=== PATIENT | male | born 1950 | race Caucasian/White ===

== ENCOUNTER 2020-07-24 08:01 | Inpatient (IN) | payer OTHER ==
[~2020-07-24] VITALS: Ht 180.3 cm; Wt 76.0 kg
[2020-07-24 09:13] LABS: BASOPHILS ABSOLUTE AUTO 0.03 K/mm3 (0.00-0.23); BASOPHILS PERCENT AUTO 0 % (0-2); EOSINOPHILS ABSOLUTE AUTO 0.01 K/mm3 (0.00-0.68); EOSINOPHILS PERCENT AUTO 0 % (0-6); Hematocrit 45.1 % (37.0-53.0); Hemoglobin 14.7 g/dL (13.5-17.5); IMMATURE GRAN ABSOLUTE AUTO 0.07 K/mm3 (0.00-0.10); IMMATURE GRAN PERCENT AUTO 1 % (0-1); LYMPHOCYTES ABSOLUTE AUTO 0.62 K/mm3 (0.84-5.20); LYMPHOCYTES PERCENT AUTO 5 % (21-46); MONOCYTES ABSOLUTE AUTO 0.89 K/mm3 (0.16-1.47); MONOCYTES PERCENT AUTO 7 % (4-13); Mean Corpuscular HGB 31.5 pg (26.0-34.0); Mean Corpuscular HGB Conc 32.6 g/dL (31.5-36.5); Mean Corpuscular Volume 97 fL (80-100); Mean Platelet Volume 9.9 fL (9.1-12.4); NEUTROPHILS ABSOLUTE AUTO 10.41 K/mm3 (1.96-9.15); NEUTROPHILS PERCENT AUTO 87 % (41-73); Platelet Count 239 K/mm3 (150-400); RDW Coefficient Variation 12.1 % (11.7-14.2); RDW Standard Deviation 43.3 fL (35.1-46.3); Red Blood Cell Count 4.67 M/mm3 (4.30-5.90); White Blood Cell Count 12.03 K/mm3 (4.00-11.30)
[2020-07-24 09:34] LABS: Alanine Aminotransfer (ALT/SGP 15 U/L (12-78); Albumin/Globulin Ratio 0.8 (0.8-1.8); Alk Phos 57 U/L (50-136); Anion Gap 5 mmol/L (6-16); Aspartate Aminotrans (AST/SGOT 12 U/L (12-37); Bilirubin, Total 2.5 mg/dL (0.1-1.0); Blood Urea Nitrogen 13 mg/dL (8-24); Bun/Creatinine Ratio 13.6 (12.0-20.0); CO2, Blood 27 mmol/L (21-32); Calcium, Blood 8.7 mg/dL (8.5-10.1); Chloride, Blood 105 mmol/L (98-108); Creatinine, Blood 0.96 mg/dL (0.60-1.20); Globulin, Blood 3.9 g/dL (2.2-4.0); Glomerular Filtration Rate >60 (60-); Glucose, Blood 99 mg/dL (70-99); Potassium, Blood 4.1 mmol/L (3.5-5.5); Sodium, Blood 137 mmol/L (136-145); Total Protein, Blood 6.9 g/dL (6.4-8.2); Troponin I <0.015 ng/mL (0.000-0.040)
[2020-07-24] MEDS ORDERED: Hytrin2 MG PO (12:47)
[2020-07-24] MEDS ORDERED: OMEP20ER PO (13:32)
[2020-07-25 05:06] LABS: Hematocrit 40.2 % (37.0-53.0); Hemoglobin 13.1 g/dL (13.5-17.5); Mean Corpuscular HGB 31.1 pg (26.0-34.0); Mean Corpuscular HGB Conc 32.6 g/dL (31.5-36.5); Mean Corpuscular Volume 96 fL (80-100); Mean Platelet Volume 10.1 fL (9.1-12.4); Platelet Count 223 K/mm3 (150-400); RDW Coefficient Variation 12.1 % (11.7-14.2); Red Blood Cell Count 4.21 M/mm3 (4.30-5.90)
[2020-07-25 05:25] LABS: Anion Gap 6 mmol/L (6-16); Blood Urea Nitrogen 18 mg/dL (8-24); Bun/Creatinine Ratio 20.3 (12.0-20.0); CO2, Blood 26 mmol/L (21-32); Calcium, Blood 8.8 mg/dL (8.5-10.1); Chloride, Blood 106 mmol/L (98-108); Creatinine, Blood 0.89 mg/dL (0.60-1.20); Glomerular Filtration Rate >60 (60-); Glucose, Blood 168 mg/dL (70-99); Potassium, Blood 4.1 mmol/L (3.5-5.5); Sodium, Blood 138 mmol/L (136-145)
--- NOTE | 2020-07-25 06:06 | NUR ---
SHIFT SUMMARY PT WAS A NEW ADMIT DURING THE NIGHT, ARRIVING ON THE UNIT AT 2057. HE WAS ADMITTED FOR ACUTE RESPIRATORY FAILURE. PT IS A&O X 4, ABLE TO AMBULATE INDEPENDENTLY. PT IS ON 2L O2 VIA NC, SATTING > 90%. PT DID RUN A MILD FEVER 100.4 TEMPORALLY THAT CAME DOWN TO 98.6 AFTER RECEIVING TYLENOL. ALL OTHER VITALS STABLE. PT WAS MEDICATED ONCE WITH AM FOR A KWAN. PT DENIED ANY ACUTE SOB SINCE ARRIVAL TO THE FLOOR, AND STATES HE FEELS "MUCH BETTER THAN I DID LAST NIGHT". NO ACUTE CHANGES IN PT CONDITION NOTED DURING THE NIGHT. WILL CONTINUE TO MONITOR AND TREAT PER EMAR UNTIL HAND OFF TO DAY SHIFT RN.
[2020-07-25 12:50] LABS: International Normalized Ratio 0.99; Prothrombin Time Results 10.6 Sec (9.7-11.5)
--- NOTE | 2020-07-25 17:42 | NUR ---
PATIENT A/OX4, UP INDEPENDENTLY IN ROOM. VSS, ON 2LO2 TO MAINTAIN SATS. L SIDED CP AND HEADACHE WELL CONTROLLED WITH NORCO AND TORADOL. LUNGS COARSE WITH CRACKLES IN THE BASES. THORACENTESIS ORDERED, BUT WILL BE DONE TOMORROW DUE TO LOVENOX INJECTION GIVEN LAST NIGHT. LOVENOX NOW D/C'D. SR ON TELE. 20G IV TO R AC WNL AND SL. TOLERATING REGULAR DIET. COOPERATIVE WITH CARE, ABLE TO MAKE NEEDS KNOWN.
--- NOTE | 2020-07-26 06:32 | NUR ---
SHIFT SUMMARY PT IS A 70 Y/O MALE, ADMITTED FOR ACUTE RESPIRATORY FAILURE. HE IS A&O X 4, INDEPENDENT TO THE BATHROOM. PT IS ON 2L OF O2 VIA NC TO KEEP SATS > 90%. TELE SHOWED NSR/ST IN THE 90-100S. PT RAN A LOW GRADE TEMP OF 101.7, WHICH CAME DOWN TO 99.3 AFTER RECEIVING TYLENOL. ALL OTHER VITALS STABLE. PT C/O ACUTE ABDOMINAL PAIN, WHICH HE BELIEVES IS R/T CONSTIPATION. DIFFUSE ABD TENDERNESS AND MILD DISTENTION NOTED THIS AM. PT WAS GIVEN PRUNE JUICE AND REPORTED HAVING A SMALL BM. HE WAS MEDICATED TWICE FOR PAIN WITH HYDROCODONE AND TORADOL. NO C/O NAUSEA OR SOB. PT AWAITING A THORACENTESIS TODAY. NO OTHER ACUTE CHANGES IN PT CONDITION NOTED. WILL CONTINUE TO MONITOR AND TREAT PER EMAR UNTIL HAND OFF TO DAY SHIFT RN.
[2020-07-26 10:14] LABS: Automated BF RBC Count 0.002 M/mm3 (0-0); Body Fluid WBC Count 2410 /mm3 (0-999)
[2020-07-26 10:30] LABS: pH, Body Fluid 7.9
[2020-07-26 10:41] LABS: Albumin, Body Fluid 2.3 g/dL; Glucose, Body Fluid 102 mg/dL; Lactate Dehydrogenase, Body Fl 106 U/L; Protein, Body Fluid 3.9 g/dL
[2020-07-26 11:14] LABS: Appearance, Body Fluid Cloudy (Clear); Color, Body Fluid Yellow (None-Yellow); Total Cell Count, Body Fluid 100
--- NOTE | 2020-07-26 12:37 | NUR ---
PT TO SDS FROM FLOOR. History, Chart, Medications and Allergies reviewed before start of procedure. Patient confirms NPO status and agrees with scheduled surgery. PTS IV FLUSHED, PATENT. PTS ABD NOT PREPPED, ABD TENDER.
--- NOTE | 2020-07-26 13:57 | NUR ---
[facility] AT 1353.
--- NOTE | 2020-07-26 16:49 | NUR ---
TRANSFER NOTE THIS RN GAVE REPORT TO WENDY DIETRICH IN ICU. PT HAS BEEN IN HIS GI PROCEDURE SINCE 1200 TODAY. BELONGINGS BROUGHT FROM ROOM TO ICU BY HIGH DENSITY PRESS OPERATOR. THIS RN TUBED PT MEDICATIONS TO ICU AT APPROXIMATELY 1650.
--- NOTE | 2020-07-26 18:25 | NUR ---
SHIFT SUMMARY PT TRANSFERRED TO ROOM ICU 8 FROM PACU A PCU PTAT 1712 THIS EVENING. UPON ARRIVAL PT WAS ON 8L OXYMIZER, NEW COLOSTOMY TO LLQ IN PLACE, PINK AND NO STOOL NOTED. [address] #1 ON RIGHT ABD AND #2 ON LEFT ABD, BOTH DRAINING SEROSANGUINEOUS FLUID. MID ABDOMINAL INCISION DRESSING C/D/I. BLANCO IN PLACE DRAINING TO GRAVITY WITH CLEAR YELLOW URINE. PT REPORTED THAT PAIN WAS GREATLY IMPROVED COMPARED TO PRE-OP AROUND 09/01. VITALS HAVE REMAINED STABLE POST RECOVERY. PT CURRENTLY NOW ON 4L OF O2 VIA OXYMIZER AND SPO2 REMAINS >92%. MONITOR SHOWS PT TO BE IN SINUS RHYTHM. PT C/O INCREASED PAIN WITH MOVEMENT, BUT FALLS ASLEEP EASILY WHEN LAYING STILL. LIAN OUTPUT MINIMAL FOR CURRENT RECOVERY PERIOD.
--- NOTE | 2020-07-26 19:00 | NUR ---
ASSUMED CARE NOTE: ASSUMED CARE OF PT AT 1900. PT IS ALERT AND ORIENTEDX4, ABLE TO COMMUNICATE NEEDS. PT IS ON 4L OF 02 VIA OXYIMZER, SPO2 ABOVE 90% PT IS SINUS TO SINUS TACH HR BETWEEN 90-110. PT DENIES ANY CP/SOB. PT IS VERY COARSE T/O. WEAK COUGH, INCENTIVE SPIROMETER GIVEN TO PATIENT AND DEMONSTRATED USE.YANKAUER GIVEN TO PATIENT AT BEDSIDE. MID-ABDOMEN INCISION DRESSING C/D/I. STOMA IS RED AND MOIST, SEROSANGUANIOUS FLUID NOTED. 1ST LINA DRAIN TO RIGHT SIDE ABDOMEN, DRAINING SEROUSANGUANIOUS FLUID WELL LIAN #2 TO LEFT ABDOMEN. PT STS 3/10 PAIN TO ABDOMEN IS DECLINING NEED FOR PAIN MEDS AT THIS TIME. BLANCO PATENT, DRAINING TO GRAVITY, BED AT LOWEST LEVEL. CALL LIGHT WITHIN REACH.
[2020-07-27 03:49] LABS: Hematocrit 36.2 % (37.0-53.0); Hemoglobin 11.6 g/dL (13.5-17.5); Mean Corpuscular HGB 30.9 pg (26.0-34.0); Mean Corpuscular Volume 96 fL (80-100); Mean Platelet Volume 9.2 fL (9.1-12.4); Platelet Count 243 K/mm3 (150-400); RDW Coefficient Variation 12.7 % (11.7-14.2); RDW Standard Deviation 45.6 fL (35.1-46.3); Red Blood Cell Count 3.76 M/mm3 (4.30-5.90)
[2020-07-27 04:07] LABS: Anion Gap 6 mmol/L (6-16); Blood Urea Nitrogen 24 mg/dL (8-24); Bun/Creatinine Ratio 21.6 (12.0-20.0); CO2, Blood 27 mmol/L (21-32); Calcium, Blood 7.9 mg/dL (8.5-10.1); Chloride, Blood 107 mmol/L (98-108); Creatinine, Blood 1.11 mg/dL (0.60-1.20); Glomerular Filtration Rate >60 (60-); Glucose, Blood 86 mg/dL (70-99); Magnesium, Blood 1.8 mg/dL (1.6-2.4); Potassium, Blood 4.1 mmol/L (3.5-5.5); Sodium, Blood 140 mmol/L (136-145)
--- NOTE | 2020-07-27 05:52 | NUR ---
SHIFT SUMMARY: NO SIGNIFICANT CHANGES. PT REMAINS ALERT AND ORIENTED. PT C/O PAIN THIS SHIFT, PAIN MEDS GIVEN PER EMAR. WHICH ALLIVIATED PAIN. PT CONTINUES TO BE ON 4L OF 02 VIA OXYMIZER WITH SPO2 ABOVE 90% PT IS STILL COARSE T/O. HOWEVER, COUGH IS GETTING STRONGER. PT HUGS PILLOW WHEN COUGHING WHICH AIDS IN PREVENTING PAIN ASSOCIATED WITH COUGHING. PT HAS BEEN IN SINUS TACH WITH HR IN THE 100-110. BP STABLE, DENIES ANY CP. MIDLINE SURGICAL INCISION C/D/I. COLOSTOMY TO LLQ DRAINING SEROSANGUANEOUS FLUID. STOMA MOIST AND RED, A LITTLE SWELLING NOTED, STS IT IS EXPECTED. LIAN TO RIGHT ABDOMEN DRAINING SS FLUID, LEFT LIAN DRAIN, DRAINING SS FLUID, MORE THAN THE RIGHT. BLANCO PATNET DRAINING DANIEL COLORED URINE. WILL CONTINUE TO MONITOR PT UNTIL REPORT IS GIVEN TO ONCOMING SHIFT.
--- NOTE | 2020-07-27 07:26 | NUR ---
ASSUMED CARE: PT LAYING IN BED BUT AWAKE AND TALKING TO STAFF. OXYMIZER IN PLACE. COLOSTOMY TO LEFT ABDOMEN WITH BEEFY RED STOMA. MINIMAL BROWN OUTPUT AT THIS TIME. LIAN DRAINS TO RIGHT AND LEFT ABDOMEN. RIGHT LIAN WITH REDDISH PINK DRAINAGE. LEFT LIAN WITH PINK SEROSAINGUINOUS DRAINAGE. DENIES NEEDS OR CONCERNS AT THIS TIME.
[2020-07-27 12:12] LABS: Hematocrit 38.3 % (37.0-53.0); Hemoglobin 12.2 g/dL (13.5-17.5); Mean Corpuscular HGB 30.9 pg (26.0-34.0); Mean Corpuscular HGB Conc 31.9 g/dL (31.5-36.5); Mean Corpuscular Volume 97 fL (80-100); Mean Platelet Volume 9.6 fL (9.1-12.4); Platelet Count 277 K/mm3 (150-400); RDW Coefficient Variation 12.8 % (11.7-14.2); RDW Standard Deviation 45.8 fL (35.1-46.3); Red Blood Cell Count 3.95 M/mm3 (4.30-5.90); White Blood Cell Count 12.34 K/mm3 (4.00-11.30)
--- NOTE | 2020-07-27 15:42 | NUR ---
IN HOUSE TRANSFER- ASSUMED CARE FROM RAIMANN MACHINE OPERATORLyudmila PT ARRIVED FROM ICU AT APPROXIMATELY 1510. PT WAS ABLE TO SBA TRANSFER FROM WHEELCHAIR TO BED. LUNGS ARE COARSE THROUGHOUT. VS STABLE, PT ON 3L NC. ABD DRESSINGS ARE CLEAN DRY INTACT, [address] DRAINING SERISANGOUINOUS FLUIDS. BLANCO CATH IN PLACE DRAINING YELLOW URINE, NEW STAT LOCK SECUREMENT DEVICE PLACED ON THE LEG. IV'S FLUSHED AND WORKING WELL. PT RESTING IN BED AT THIS TIME
--- NOTE | 2020-07-27 15:46 | NUR ---
REPORT GIVEN TO JAYDA NGUYEN. PT TRANSFERRED VIA WHEEL CHAIR TO PCU ROOM. AT BEDSIDE AND AWARE OF ROOM CHANGE. NO FURTHER NEEDS OR CONCERNS.
--- NOTE | 2020-07-27 17:42 | NUR ---
SHIFT SUMMARY PT ARRIVED FROM ICU THIS AFTERNOON. PT HAS 2 LIAN DRAINS, SEVERAL ABD DRESSINGS THAT ARE C/D/I, A NEW COLOSTOMY AND A BLANCO IN PLACE. THE COLOSTOMY HAS A SCANT AMOUNT OF RED BLOODY DRAINAGE BUT NO GAS OR STOOL OUTPUT OF NOW. PT'S PAIN HAS BEEN MANAGED WITH OXYCODONE, REPOSITIONING AND PRESSURE WITH A PILLOW ON THE ABD. PT SOUNDS VERY WET AND COARSE IN THE LUNGS AND AUDIBLE. PT HAS BEEN ENCOURAGED TO COUGH FREQUENTLY AND USE THE INCENTIVE SPIROMETER. PT IS TOLERATING CLEAR LIQUIDS AT THIS TIME WELL. VS STABLE PT RESTING IN BED AT THIS TIME
--- NOTE | 2020-07-28 02:27 | NUR ---
PT HAS REPORTED ABDOMINAL PAIN WHICH INCREASES WITH COUGHING, OTHERWISE HE HAS BEEN REPORTING HIS ABDOMINAL PAIN A 2/10. PT HAS BEEN USING THE FLUTTER VALVE AND INCENTIVE SPIROMETER THROUGHOUT THE NIGHT. PT HAS BEEN SLEEPING FOR INTERMITTENT PERIODS OF TIME. CALL LIGHT WITHIN REACH. BED IN LOW POSITION. FLUIDS AT BEDSIDE.
[2020-07-28 04:51] LABS: Anion Gap 6 mmol/L (6-16); Blood Urea Nitrogen 27 mg/dL (8-24); Bun/Creatinine Ratio 24.8 (12.0-20.0); CO2, Blood 32 mmol/L (21-32); Calcium, Blood 8.6 mg/dL (8.5-10.1); Chloride, Blood 101 mmol/L (98-108); Creatinine, Blood 1.09 mg/dL (0.60-1.20); Glomerular Filtration Rate >60 (60-); Glucose, Blood 195 mg/dL (70-99); Potassium, Blood 4.2 mmol/L (3.5-5.5); Sodium, Blood 139 mmol/L (136-145)
--- NOTE | 2020-07-28 07:19 | NUR ---
SHIFT SUMMARY - NO ACUTE CHANGES THROUGHTOUT THE NIGHT. PT HAS USED THE IS AND FLUTTER VALVE APPX 6 X DURING THE NIGHT. PT REPORTS "SOB BETTER", HOWEVER PT'S LUNG SOUNDS REMAIN THE SAME THE INITIAL ASSESSMENT TONIGHT. PT MEDICATED FOR ABDOMINAL PAIN WITH NORCO WITH GOOD RELIEF. STOMA SITE WNL, CONTINUES WITH SMALL AMOUNT OF SS DRAINAGE - APPX 10 CC. ABDOMINAL DRESSING CD&I. PT USING A PILLOW FOR A SPLINT FOR COUGH. CALL LIGHT IN REACH. BED IN LOW POSITION. FLUIDS AT BEDSIDE.
--- NOTE | 2020-07-28 12:18 | NUR ---
POST THORACENTISIS Pt had thoracentisis at bedside with Dr. Mcneill. Pt tolerated well. 1400ml fluid removed. Sent to lab per physician orders. Pt stable at this time. Biox increased to 97%. Decreased O2 to 13L per NC. Call light in reach. Will continue to monitor.
[2020-07-28 12:36] LABS: Automated BF RBC Count 0.017 M/mm3 (0-0); Automated BF WBC Count 4.877 K/mm3 (0-999); Body Fluid WBC Count 4877 /mm3 (0-999); RBC Count, Body Fluid 17000 /mm3 (0-0)
[2020-07-28 12:48] LABS: Protein, Body Fluid 3.5 g/dL
[2020-07-28 12:55] LABS: Cholesterol, Body Fluid <50 mg/dL
[2020-07-28 13:01] LABS: Lactate Dehydrogenase, Body Fl 1248 U/L
[2020-07-28 13:24] LABS: Appearance, Body Fluid Cloudy (Clear); Color, Body Fluid L Yellow (None-Yellow); Total Cell Count, Body Fluid 100
--- NOTE | 2020-07-28 15:36 | NUR ---
Spiritual care visit conducted. Patient is sitting up in bed and alert. Patient tells me about his surgeries, his lymphoma, his collapsed lung and the fluid he had drained off. Patient is in surprising good spirits and is quite talkative. Patient shares about his family, his 50yr marriage to his , his 42yr career for [employer] and his spiritual journey. Patient is a member of [employer] and tells me that without his his elizabeth would not be what it is today. His elizabeth today is extremely important to him and a source of inner strength and hope. I reinforce helpful attitudes and practices, and provide therapeutic listening, pastoral counseling services manager and prayer. Patient responds well and states that he is very encouraged by the spiritual care visit. I will continue to find ways to build up patient in the areas of his life that he states are most meaningful.
--- NOTE | 2020-07-28 18:16 | NUR ---
PT SUMMARY: PT REMAINS ALERT AND ORIENTED AT BASELINE, VITALS HRR SINUS AT 70'S, BP SYSTOLIC 115, AFEBRILE. SAT WAS AT 80-85% DURING ASSESSMENT THIS AM ON 3L OF O2, LUNGS ARE WET WITH CRACKLES, RT WAS CALLED PT WAS PUT ON HIFLO NC 15L PT SATS STILL 89-91% ISSUE WAS ADDRESSES TO DR MCCRARY CXR STAT ORDERED, LEFT LUNG WAS COMPLETELY WHITE OUT PER RESULT, DR MEZA CONSULTED AND DID BED SIDE LUNG TAP, ABOUT 1400MLS DRAINED, PER DR MEZA PT STILL HAS SMALL PNEUMOTHORAX BUT DOES NOT REQUIRE DRAINING AT THIS TIME TO KEEP PT ON 15L OF NRB MASK FOR 2 DAYS, SATS ARE NOW ABOVE 95% POST TAP. LIAN DRAINS ON BOTH SIDE OF ABD INTACT DRAINED 40-60 AMOUNT OF SEROSANGUINEOUS FLUID FOR THE SHIFT, COLOSTOMY ABOUT 40MLS OF SAME DRAINAGE. PT'S PAIN LEVEL 5-7/10 MANAGED WITH NORCO AND IV FENTANYL PT USES PILLOW FOR ABD WHEN COUGHING. PT REPORTED PASSING GAS ON THE COLOSTOMY BAG, PT REMAINS ON CLEAR LIQUID DIET. BLANCO DRAINING VIA GRAVITY. NO OTHER ISSUES ENCOUNTERED FOR THE SHIFT, ABLE TO MAKE NEEDS KNOWN, WILL MONITOR UNTIL END OF SHIFT
[2020-07-29 04:40] LABS: Hematocrit 38.2 % (37.0-53.0); Hemoglobin 12.1 g/dL (13.5-17.5); Mean Corpuscular HGB 30.2 pg (26.0-34.0); Mean Corpuscular HGB Conc 31.7 g/dL (31.5-36.5); Mean Corpuscular Volume 95 fL (80-100); Mean Platelet Volume 9.9 fL (9.1-12.4); Platelet Count 334 K/mm3 (150-400); RDW Coefficient Variation 13.1 % (11.7-14.2); RDW Standard Deviation 46.5 fL (35.1-46.3); Red Blood Cell Count 4.01 M/mm3 (4.30-5.90); White Blood Cell Count 14.68 K/mm3 (4.00-11.30)
[2020-07-29 04:58] LABS: Anion Gap 8 mmol/L (6-16); Blood Urea Nitrogen 35 mg/dL (8-24); Bun/Creatinine Ratio 28.9 (12.0-20.0); CO2, Blood 31 mmol/L (21-32); Calcium, Blood 8.5 mg/dL (8.5-10.1); Chloride, Blood 101 mmol/L (98-108); Creatinine, Blood 1.21 mg/dL (0.60-1.20); Glomerular Filtration Rate >60 (60-); Glucose, Blood 209 mg/dL (70-99); Potassium, Blood 3.6 mmol/L (3.5-5.5); Sodium, Blood 140 mmol/L (136-145)
--- NOTE | 2020-07-29 05:04 | NUR ---
SHIFT SUMMARY NO ACUTE CHANGES THIS SHIFT. PT A&OX4. SP02>92% ON 15L NRB. TELEMETRY READ SR W/ PVC'S, HR 60'S. PT C/O PLEURTIC PAIN OF 3/10 AT REST 7/10 WHEN COUGHING. MEDICATED PER EMAR. PT HAS BLANCO CATHETER DRAINING YELLOW URINE TO GRAVITY. PT HAS OSTOMY, STOMA PINK. BAG DID NOT NEED CHANGED THIS SHIFT BUT DID NEED BURPED X3. PT HAS 2 LIAN DRAINS, EACH ON ONE SIDE OF ABD. L DRAIN NEEDED EMPTIED THIS SHIFT W/ 60 MLS. PT SLEPT MOST OF NIGHT. CALL LIGHT IN REACH. BED IN LOWEST POSITION.
--- NOTE | 2020-07-29 12:30 | NUR ---
INITIAL PAL CARE VISIT - Referral received for advanced care planning and review of code status. Pt sitting up in chair, with empty lunch tray in front of him. He is pleasant and easily engaged. He reports abdominal discomfort from "bloating" after eating. He is dyspnic with loose cough and wet sounding respirations. Pt reports feeling much better than yesterday. He is motivated and participatory in care, using incentive spirometer and pickle on table in front of him. He looks uncomfortable and grimaces or guards while talking. We talked about mobility, deep breathing, coughing and clearing secretions to assist with recovery and the need to have pain managed well enough to do those activities. We discussed what he understood from Drs visits today and I had case conferenced with pt's RN and reviewed EMR prior to my visit. Pt is very hopeful that he is on the mend now. He is looking forward to being home with his and states he has plenty of help there. His son and family of 8 moved in with him and his about 6 months ago. Pt is realistic that his recovery may be slow with re-expension of lung love and recovery from abd surgery. He is grateful for the chance to get well again. He describes a high level of satisfaction with his quality of life and wants to "be there for his family". We reviewed his code status orders and pt confirms his desire to be a full code. In reviewing pulmonology note and speaking with pt's RN, two thoracentesis fluid samples from [facility] lung love are negative for malignacy and positive for e coli, with some additional results still pending, indicating pleural effusions may be from acute process process discovered in abdomen with perforated gastric ulcer. Since pt is expressing his desire and plan to return home on d/c, PT/OT evals recommended when pt is medically ready for therapy eval/tx to determine if this is a safe and realistic d/c plan. Pt's O2 needs are much improved but he may still require supplemental O2 at the time of d/c so home O2 eval recommended as d/c timeframe nears. If home on d/c is determined to be a safe plan, I recommend PT/OT/RN on d/c for ostomy teaching and care, pain, GI & respiratory function assessment and care. Report on my visit given to pt's RN and Care management afterwards. Pal Care will remain available if additional needs identified. No further visits planned unless requested.
--- NOTE | 2020-07-29 13:32 | NUR ---
Spiritual care visit conducted. Patient is sitting on a chair and alert. Patient tells me that he is breathing easier and feeling stronger. Patient then talks about his move to [place] (40yrs ago) and the resaons for the move (hunting and fishing). Patient expresses that he is feeling positive about his day and thankful for the conversations with family and friends he has had already this morning. My visit with patient was then cut short as his doctor walks in. I will continue to remain available to patient and family.
--- NOTE | 2020-07-29 17:17 | NUR ---
SUMMARY- PT ALERT AND ORIENTED X4. TOLERATING CLEAR LIQ BREAKFAST. DR MEZA HERE IN THE AM, PLACED ON NC 5L FROM NRM. SATTING 94%. LUNGS SCATTED RHONCHI, MOIST RATTELY COUGH, MIN PRODUCTION. PT MOTIVATED AND USING IS AND PICKLE. TOLERATED FULL LUNCH. BOWEL TONES NORMOACTIVE. AIR IN COLONOSTOMY. ABD MOD DISTENTED. PAIN MANAGED WITH HYDROCODONE Q4-5.. LIAN DRAIN X2 PUT OUR 60 AND 80CC. FRANCIS DC'D, PT VOIDING IN URINAL. AMBULATED IN LORENZO APPROX 200 FT ROOM AIR. SATS ON ROOM AIR AFTER ACTIVITY 87%- PLACED BACK ON 2L.
--- NOTE | 2020-07-29 18:12 | NUR ---
SUMM- PT ALERT ORIENTED X3, TO SELF, PLACE, CITY AND DATE, DID NOT KNOW THE PRESIDENT. PT IS HAVING DELUSIONS AND HALLUCINATIONS OF MAGOTS ON THE FLOOR. ALSO OF BABIES. SHE TAKES OFF HER TELE AND SAYS THEIR BABIES. PT FREQ FRUSTRATED AND IRRITABLE. PT GOT UP FROM BED TO CHAIR FOR LUNCH AND DINNER USING CEILING LIFT. EATING MECH SORT, ENCOURAGING PT TO FEED HER SELF, NEEDS CUES TO STAY ON TASK. HAD A VISITOR TAMY AND ASKED HER VISITOR TO LEAVE. DID NOT WANT TO TALK TO MOM OR ANDRÉS ON PHONE. PT HAS RECTAL TUBE, BALLOON RELEASED AROUND 1300 BREIFLY FOR CIRCULATION. DRAINING LIQ YELLOW/ORANGE STOOL. ALSO HAS BLANCO DRAINING ORANGE URINE. PT HAS DISTENDED ABD/ ASCITES IS JUANDICED. ONLY PANFUL IF LEGS TOUCHED OR ABD. HAS HAD LOW GRADE TEMP. CONT IVF
[2020-07-30 03:48] LABS: Anion Gap 6 mmol/L (6-16); Blood Urea Nitrogen 35 mg/dL (8-24); Bun/Creatinine Ratio 35.1 (12.0-20.0); CO2, Blood 30 mmol/L (21-32); Calcium, Blood 8.3 mg/dL (8.5-10.1); Chloride, Blood 103 mmol/L (98-108); Glomerular Filtration Rate >60 (60-); Glucose, Blood 134 mg/dL (70-99); Potassium, Blood 3.5 mmol/L (3.5-5.5); Sodium, Blood 139 mmol/L (136-145)
--- NOTE | 2020-07-30 04:58 | NUR ---
SHIFT SUMMARY NO ACUTE CHANGES THIS SHIFT. PT A&OX4. SP02>90% ON 5L NC. PT FELL TO 87% ONCE WHILE SLEEPING. SP02 MONITOR ALARMED. ENCOURAGED PT TO TAKE DEEP BREATHES WITH SATS RETURNING TO >90%. TELEMETRY READS SR W/ PVCS. HR 70'S-80'S. PT USED URINAL AT BESIDE. OSTOMY PRODUCED 1/4 BAG OF DARK BROWN LOOSE STOOL. BAG EMPTIED. LIAN DRAINS BOTH EMPTIED, BOTH DRAINING SEROSANGUINOUS FLUID. DRAIN #2 HAD A STRINGY, SMALL CLOT IN BOTTOM OF DRAIN WHEN EMPTIED. PT C/O OF 7/10 PAIN WHEN COUGHING. MEDICATED W/ NORCO PER EMAR. ABX INFUSED PER EMAR. PT SLEPT T/O NIGHT. CALL LIGHT IN REACH. BED IN LOWEST POSITION.
--- NOTE | 2020-07-30 17:03 | NUR ---
UPDATE PT ALERT AND ORIENTED. VS STABLE. O2 SATS HAVE REMAINED ABOVE 90% ON 5L NC. PT COMPLAINS OF PAIN UPON COUGHING AND MEDICATED NEEDED. LS COARSE THROUGHOUT. PT USING FLUTTER VALVE AND INCENTIVE SPIROMETER AND ABLE TO PRODUCE SPUTUM. LIAN DRAINS BOTH PRODUCING SEROSANGUINEOUS FLUID. COLOSTOMY BAG CHANGED TODAY DUE TO LEAKING NEAR THE MIDLINE INCISION. ALL WOUNDS CLEANED AND REDRESSED ORDERED. STATUS CHANGED TO MEDICAL AND REPORT GIVEN TO JAC NGUYEN. PT TAKEN UP BY DONTA.
--- NOTE | 2020-07-30 18:46 | NUR ---
SHIFT SUMMARY- PT TRANSFERED TO MEDICAL FLOOR FROM PCU2. PT ON 5L VIA NC, BILATERAL LIAN DRAINS PRESENT, NEW COLOSTOMY PRESENT, ABD JOYCE PRESENT. PER REPORT PT VOIDS INDEPENDENTLY IN THE URINAL. 2 URINALS AT THE BEDSIDE. LUNG SOUNDS ARE CONGESTED BUT GREATLY IMPROVED PER REPORT FROM WIRE TINNER. PT IS PROPERLY USING THE INCENTIVE SPIROMETER AND THE FLUTTER VALVE. PT A&O X4 AND VERY PLEASENT AND COOPERATIVE WITH ALL CARE. WILL PASS ALL ON TO NIGHT RN IN BEDSIDE REPORT.
--- NOTE | 2020-07-31 03:30 | NUR ---
SHIFT SUMMARY PATIENT HAD NO ACUTE CHANGES OBSERVED. AXOX 4 AND BEDREST. ON 5L O2 NC. BILATERAL LIAN DRAINS, COLOSTOMY, AND ABDOMINAL JOYCE. VSS/AFEBRILE. REPORTED ABDOMINAL PAIN X ONE AND NORCO GIVEN PER EMAR. DENIES SOB AND NV. VSS/AFEBRILE. PIV REMAINS INTACT. COOPERATIVE WITH CARE. CALL LIGHT IN REACH. BED IN LOWEST POSITION. WILL CONTINUE TO MONITOR UNTIL DAY SHIFT NURSE ASSUMES CARE.
[2020-07-31 04:40] LABS: Hematocrit 38.4 % (37.0-53.0); Hemoglobin 12.6 g/dL (13.5-17.5); Mean Corpuscular HGB Conc 32.8 g/dL (31.5-36.5); Mean Corpuscular Volume 95 fL (80-100); Mean Platelet Volume 9.5 fL (9.1-12.4); Platelet Count 358 K/mm3 (150-400); RDW Coefficient Variation 13.2 % (11.7-14.2); RDW Standard Deviation 45.4 fL (35.1-46.3); Red Blood Cell Count 4.06 M/mm3 (4.30-5.90); White Blood Cell Count 8.67 K/mm3 (4.00-11.30)
[2020-07-31 04:57] LABS: Anion Gap 4 mmol/L (6-16); Blood Urea Nitrogen 32 mg/dL (8-24); Bun/Creatinine Ratio 36.4 (12.0-20.0); CO2, Blood 35 mmol/L (21-32); Calcium, Blood 8.2 mg/dL (8.5-10.1); Chloride, Blood 101 mmol/L (98-108); Creatinine, Blood 0.88 mg/dL (0.60-1.20); Glomerular Filtration Rate >60 (60-); Glucose, Blood 126 mg/dL (70-99); Potassium, Blood 4.3 mmol/L (3.5-5.5); Sodium, Blood 140 mmol/L (136-145)
--- NOTE | 2020-07-31 16:54 | NUR ---
SHIFT SUMMARY- PT GOES BY LESTER. LIAN DRAINS PRESENT IN THE RIGHT AND LEFT QUADRANTS DRAINING LARGE AMOUNTS OF SERO-SANGUINOUS FLUID. PT HAS SOFT STOOL DARK BROWN FROM THE OSTOMY IN THE LEFT ABD. JOYCE PRESENT IN THE MID ABDOMEN NO S&S OF INFECTION AT THE SURGICAL SITE. PT HAS BEEN MEDICATED FOR PAIN NEEDED. PT USING FLUTTER VALVE AND INCENTIVE SPIROMETER REGULARLY. PT WAS ABLE TO GET UP AND WALK WITH THERAPY TODAY, STATED HE STILL FEELS WEAK BUT HE IS "GETTING BETTER." WILL CTM AND PASS ON TO NIGHT RN IN BEDSIDE REPORT.
--- NOTE | 2020-08-01 03:46 | NUR ---
SHIFT SUMMARY PATIENT HAD NO ACUTE CHANGES OBSERVED. AXOX 4 AND REPORTED ABDOMINAL PAIN X ONE. NORCO GIVEN PER EMAR AND PATIENT ABLE TO GO BACK TO SLEEP. LIAN DRAIN LLQ AND RLQ DRAINING. COLOSTOMY INTACT. NO S/SX OF INFECTION SURGICAL STAPLE SITE. VSS/AFEBRILE. DENIES SOB AND N/V. ON 5L O2 NC AND RA BASELINE. COOPERATIVE WITH CARE. CALL LIGHT IN REACH. BED IN LOWEST POSITION. WILL CONTINUE TO MONITOR UNTIL DAY SHIFT NURSE ASSUMES CARE.
--- NOTE | 2020-08-01 18:19 | NUR ---
SHIFT SUMMARY- PT ALERT AND ORIENTED 1P ASSIST TO THE BATHROOM. LIAN DRAINS BLQ ARE DRAINING A GOOD AMOUNT AT THIS TIME. OSTOMY APPLIANCE CAME LOOSE THIS AFTERNOON AND WAS CHANGED, OK TO PLACE THE APPLIANCE OVER THE JOYCE ON THE PT ABD MIDLINE PER DR VARGHESE. PT MEDICATED FOR PAIN PRN T/O THE DAY. PT STILL NOT YET READY TO ADVANCE HIS DIET, STATES HE STILL HAS PAIN AFTER EATING AND DOES NOT WANT TO "PUSH IT." PT VERY PLEASENT, GREATFUL TO STAFF AND COOPERATIVE WITH ALL CARE. PT REMAINS ON 5L O2 VIA NC AT THIS TIME, LUNG SOUNDS ARE VERY COARSE BUT PT STATES HE IS GETTING A LITTLE BETTER EVERY DAY. PT SEEMS TO HAVE A POSSITIVE OUTLOOK AT THIS TIME. WILL CTM AND PASS ON TO NIGHT RN IN BEDSIDE REPORT.
--- NOTE | 2020-08-02 03:53 | NUR ---
SHIFT SUMMARY PATIENT HAD NO ACUTE CHANGES OBSERVED. AXOX 4 AND ONE ASSIST TO BSC. USES URINAL AT BEDSIDE. LIAN BILATERAL DRAINS. ABDOMINAL JOYCE HAVE NO S/SX OF INFECTION. COLOSTOMY INTACT. ON 3L O2 NC DOWN FROM 5L LAST NOC SHIFT. PIV REMAINS INTACT. REPORTED ABDOMINAL PAIN X TWO AND NORCO GIVEN PER EMAR. DENIES SOB AND N/V. VSS/AFEBRILE. COOPERATIVE WITH CARE. CALL LIGHT IN REACH. BED IN LOWEST POSITION. WILL CONTINEU TO MONITOR UNTIL DAY SHIFT NURSE ASSUMES CARE.
[2020-08-02 08:56] LABS: Hemoglobin 13.6 g/dL (13.5-17.5)
[2020-08-02 09:28] LABS: Anion Gap 2 mmol/L (6-16); Blood Urea Nitrogen 19 mg/dL (8-24); Bun/Creatinine Ratio 28.3 (12.0-20.0); CO2, Blood 34 mmol/L (21-32); Calcium, Blood 8.2 mg/dL (8.5-10.1); Chloride, Blood 101 mmol/L (98-108); Creatinine, Blood 0.67 mg/dL (0.60-1.20); Glomerular Filtration Rate >60 (60-); Glucose, Blood 105 mg/dL (70-99); Potassium, Blood 4.7 mmol/L (3.5-5.5); Sodium, Blood 137 mmol/L (136-145)
--- NOTE | 2020-08-02 12:52 | NUR ---
Patient is sitting up in bed and alert. Patient is sitting up in bed and alert. Patient shares about his values, his concerns about the future and morality of our country and about his personal short comings. Patient also talks about his 8 family members that are living in his home, his desire to invest in and set a positive example for them (especially when they get to see upclose and personally who he truly is). I listen empathically, hear confession and provide companionship, pastoral peer financial counselor and prayer. Patient responds well and shows signs of catharsis. I will continue to remain available to patient and family.
--- NOTE | 2020-08-02 15:29 | NUR ---
turned o2 down to 2l this am 0930. pt arline well o2 >94% turned o2 down to 10 this aft 1330, pt arline well 02> 95% removed o2. pt maintaining 34-95% . will continue to monitor
--- NOTE | 2020-08-02 17:24 | NUR ---
PT PLEASANT TODAY. PAIN MANAGED WITH AVAIL MEDS. PT GOOD ATTITUDE AND QUITE TALKATIVE. DID WALK FROM ROOM TO INTERSECTION AT NURSE STATION AND BACK TODAY. DOWN TO R/A AT THIS TIME. SATS OVER 93% AT THIS MOMENT. STATES IS FEELING BETTER. GOT TO TALK SHOOTING AND HUNTING STORIES TODAY. COLOSTOMY BAG CHANGED TODAY. THIS IS R/T STITCHES AT ABD CREATING POOR SEAL. NO OTHER CONCERNS AT THIS TIME. BED IN LOW POSITIION, CALL LITE IN REACH, CALLS APPROP
--- NOTE | 2020-08-03 05:37 | NUR ---
LOGISTICS TECHNICIAN SUMMARY NO ACUTE CHANGES THIS SHIFT. PT AAOX4 AND VERY PLEASANT. MEDICATED X1 FOR ABD PAIN. LIAN DRAINS X2 STILL INTACT AND PUTTING OUT MINIMAL DRAINAGE. JOYCE ON SURGICAL SITE LOOK C/D/I, NO REDNESS NOTED. VSS, WILL CONTINUE TO MONITOR.
--- NOTE | 2020-08-03 17:47 | NUR ---
SHIFT SUMMARY PT AxOx4. PLEASANT AND COOPERATIVE WITH CARE. PT WALKED IN LORENZO WITH AIDE TODAY. JOHN ABDOMINAL LIAN DRAINS AND OSTOMY EMPTIED AT END OF SHIFT. WORKED WITH PT/OT TODAY. PT C/O ABD PAIN T/O THE DAY. MEDICATED PER EMAR. TOLERATED REGULAR DIET WELL, WITH REPORTS OF MILD INCREASED PAIN AFTER EATING. PT UP IN RECLINER MOST OF THE DAY. USING FLUTTER VALVE AND INCENTIVE SPIROMETER T/O THE DAY. PT STATES HE FEELS BETTER AFTER DEEP BREATHING. VITALS REVIEWED. CURRENTLY RESTING IN RECLINER EATING DINNER. DENIES ANY NEEDS AT THIS TIME. CALL LIGHT IN REACH.
--- NOTE | 2020-08-04 04:37 | NUR ---
SHIFT SUMMARY NO ACUTE CHANGES THIS SHIFT. PT IS A&O X4, CALM, PLEASANT AND COOPERATIVE WITH CARE. PT C/O ABD PAIN DURING EVENING MED PASS, MEDICATED PER AUG. PT HAS SLEPT WELL T/O SHIFT WITH NO COMPLAINTS. VSS. PT IS LAYING IN BED WITH EYES CLOSED, EVEN AND UNLABORED RESPIRATIONS. BED IN LOWERED POSITION WITH SIDE RAILS UP X2 FOR SAFETY. CALL LIGHT AND PERSONAL ITEMS WITH IN REACH. NO APPARENT NEEDS OR DISTRESS AT THIS TIME, WILL CONTINUE TO MONITOR UNTIL REPORT GIVEN TO DAY RN.
--- NOTE | 2020-08-04 11:05 | NUR ---
PER MD FONTANEZ, PT DRAINS HAVE BEEN REMOVED AND STITCHES SHOULD COME OUT TOMORROW WITH STERI STRIPS APPLIED ON UNIT. PT WILL THEN BE ABLE TO DC.
--- NOTE | 2020-08-04 18:00 | NUR ---
PT RESTINNNG IN BED AFTER PM MEDICATION ADMIN AND DINNER. PT C/O / PAIN AND 1 BEING HIS TARGET, MEDICATED PER EMAR. PT HAD HIS DRAINS REMOVED TODAY BY MD FONTANEZ. PER MD, JOYCE TO BE REMOVED TOMORROW AND LONG WNL, PT CAN DC. IV LINE SL AND WNL. PT HAS BED IN LOW POSITION AND CALL LIGHT WITHIN REACH. STAFF WILL CONT. TO MONITOR.
--- NOTE | 2020-08-05 04:42 | NUR ---
SHIFT SUMMARY NO ACUTE CHANGES THIS SHIFT. PT STATES BEING EXCITED AT THE POSSIBILITY OF GOING HOME TODAY. PT IS A&O X4, CALM, PLEASANT AND COOPERATIVE WITH CARE. MEDICATED FOR PAIN X1 PER MAR. PT HAD SOME TROUBLE GETTING TO SLEEP, BUT STATES THIS IS COMMON. NO OTHER COMPLAINTS THIS SHIFT. PT IS LAYING IN BED WITH EYES CLOSED, EVEN AND UNLABORED RESPIRATIONS. BED IN LOWERED POSITION WITH SIDE RAILS UP X2 FOR SAFETY. CALL LIGHT AND PERSONAL ITEMS WITH IN REACH. NO APPARENT NEEDS OR DISTRESS AT THIS TIME, WILL CONTINUE TO MONTIOR UNTIL REPORT GIVEN TO DAY RN.
--- NOTE | 2020-08-05 11:02 | NUR ---
Spiritual care visit conducted. Patient is sitting up in bed and alert. Patient tells me that he is excited to go home today but he has some apprehension centered around his spouse being able to manage his care. Patient is hopeful that further education will be given to his spouse and himself. He talks about his family and the amazing support that they are. I normalize patient's fears and provide anxiety containment, pastoral career guidance counselor and prayer. Patient responds well and shows signs of reduced stress.
[2020-08-05] MEDS ORDERED: PANT20 PO (12:20)
[2020-08-05] MEDS ORDERED: Norco 5-325 Ta1 EACH PO (12:21)
[2020-08-05] MEDS ORDERED: COMBIVENT RESPIM4 G1 INH (12:21)
[2020-08-05] MEDS ORDERED: VISBIOME 112.51 EACH PO (12:22)
--- NOTE | 2020-08-05 17:12 | NUR ---
PT WAS DISCHARGED ALERT AND ORIENTED X4 WITH BELONGINGS AND FAMILY AT SIDE. PT IV'S WERE DC'D AND WNL. PT WAS PROVIDED EDUCATION ON OSTOMY CARE, HOME HEALTH APPOINTMENT, FOLLOW UP APPOINTMENTS NEEDED WITH PCP AND DR. JIMENEZ, AND NEW MEDICATIONS ARDERED. PT WAS RECEPTIVE AND ABLE TO TEACH BACK. PT SUTURES WERE REMOVED AND ABDOMINAL SITE WNL.
[2020-10-01] MEDS ORDERED: AMOCLA875 PO (11:22)
[2020-10-01] MEDS ORDERED: BENZ100A PO (11:22)
[2020-12-16] MEDS ORDERED: MULTIPLE VITAM1 EACH PO (10:56)
[2020-12-16] MEDS ORDERED: VITAMIN D325 MC3 PO (10:56)
[2020-12-16] MEDS ORDERED: IBUP200 PO (10:56)
[2020-12-16] MEDS ORDERED: Ranitidine HCl150 M1 PO (10:57)
[2020-12-16] MEDS ORDERED: PROBIOTIC1 EA13 PO (10:57)
[2020-12-16] MEDS ORDERED: OMEP20ER PO (10:57)
[2020-12-16] MEDS ORDERED: VALACYCLOVIR1000 M1 PO (10:57)
== END 2020-08-05 16:53 | disposition left against medical advice (07) | DRG 853 ==
LOC: ER 08:01 → MEDS 14:56 → ICUE 14:56 → ERHOLD 14:56 → MEDS 20:58 → ICUE 07-26 16:43 → PCU 07-27 15:10 → MEDS 07-30 17:11
PROVIDERS: Emergency Medicine; Internal Medicine; Internal Medicine Critical Care Medicine; Surgery; ADMIT Internal Medicine
PROC: 0DTN0ZZ Resection of Sigmoid Colon, Open Approach (ICD-10-PCS; principal; 2020-07-26 12:30)
PROC: 0D1M0Z4 Bypass Descending Colon to Cutaneous, Open Approach (ICD-10-PCS; 2020-07-26 12:30)
PROC: 0W9B3ZZ Drainage of Left Pleural Cavity, Percutaneous Approach (ICD-10-PCS; 2020-07-28)
DX: A41.9 Sepsis, unspecified organism (principal); K65.0 Generalized (acute) peritonitis; J96.01 Acute respiratory failure with hypoxia; K57.20 Diverticulitis of large intestine with perforation and abscess without bleeding; C83.10 Mantle cell lymphoma, unspecified site; J98.11 Atelectasis; I10 Essential (primary) hypertension; Z87.891 Personal history of nicotine dependence; K21.9 Gastro-esophageal reflux disease without esophagitis; N40.0 Benign prostatic hyperplasia without lower urinary tract symptoms; J32.9 Chronic sinusitis, unspecified
CPT/HCPCS: 32555; 36415; 71045; 71046; 71260; 74177; 80048; 80053; 82042; 82465; 82945; 82947; 83615; 83735; 83880; 83986; 84157; 84484; 85014; 85018; 85025; 85027; 85379; 85610; 85730; 87070; 87077; 87186; 87205; 88108; 88305; 88307; 88342; 89051; 93005; 93010; 93306; 94640; 94644; 94667; 94760; 94762; 96374-59; 96375-59; 96376-59; 97110; 97116; 97161; 97530; 99285-25; A9270; C9113; J0696; J1170; J1650; J1885; J1940; J2250; J2405; J2543; J2704; J2930; J3010; J7050; J7120; J7512; Q9967

== ENCOUNTER 2020-09-01 23:08 | Inpatient (IN) | payer OTHER ==
[~2020-09-01] VITALS: Ht 180.3 cm; Wt 72.1 kg
[~2020-09-01 23:08] MED LIST: COMBIVENT RESPIM4 G1 INH; Hytrin2 MG PO; Norco 5-325 Ta1 EACH PO; OMEP20ER PO; PANT20 PO; VISBIOME 112.51 EACH PO
[2020-09-01 23:45] LABS: BASOPHILS ABSOLUTE AUTO 0.02 K/mm3 (0.00-0.23); BASOPHILS PERCENT AUTO 0 % (0-2); EOSINOPHILS PERCENT AUTO 0 % (0-6); Hematocrit 32.4 % (37.0-53.0); Hemoglobin 10.4 g/dL (13.5-17.5); IMMATURE GRAN ABSOLUTE AUTO 0.04 K/mm3 (0.00-0.10); IMMATURE GRAN PERCENT AUTO 0 % (0-1); LYMPHOCYTES ABSOLUTE AUTO 1.15 K/mm3 (0.84-5.20); LYMPHOCYTES PERCENT AUTO 10 % (21-46); MONOCYTES ABSOLUTE AUTO 0.92 K/mm3 (0.16-1.47); MONOCYTES PERCENT AUTO 8 % (4-13); Mean Corpuscular HGB Conc 32.1 g/dL (31.5-36.5); Mean Corpuscular Volume 87 fL (80-100); NEUTROPHILS ABSOLUTE AUTO 9.51 K/mm3 (1.96-9.15); NEUTROPHILS PERCENT AUTO 82 % (41-73); Platelet Count 356 K/mm3 (150-400); RDW Coefficient Variation 13.5 % (11.7-14.2); RDW Standard Deviation 43.1 fL (35.1-46.3); Red Blood Cell Count 3.71 M/mm3 (4.30-5.90); White Blood Cell Count 11.64 K/mm3 (4.00-11.30)
[2020-09-02 00:03] LABS: Alanine Aminotransfer (ALT/SGP 74 U/L (12-78); Albumin, Blood 1.8 g/dL (3.4-5.0); Albumin/Globulin Ratio 0.4 (0.8-1.8); Alk Phos 69 U/L (50-136); Anion Gap 8 mmol/L (6-16); Aspartate Aminotrans (AST/SGOT 60 U/L (12-37); Bilirubin, Total 0.5 mg/dL (0.1-1.0); Blood Urea Nitrogen 15 mg/dL (8-24); Bun/Creatinine Ratio 14.7 (12.0-20.0); CO2, Blood 26 mmol/L (21-32); Calcium, Blood 8.3 mg/dL (8.5-10.1); Chloride, Blood 103 mmol/L (98-108); Creatinine, Blood 1.02 mg/dL (0.60-1.20); Globulin, Blood 4.5 g/dL (2.2-4.0); Glomerular Filtration Rate >60 (60-); Glucose, Blood 132 mg/dL (70-99); Sodium, Blood 137 mmol/L (136-145); Total Protein, Blood 6.3 g/dL (6.4-8.2); Troponin I <0.015 ng/mL (0.000-0.040)
--- NOTE | 2020-09-02 05:00 | NUR ---
RECEIVED REPORT FROM BEREED RN. PT TRANSPORTED TO MEDICAL FLOOR VIA GURNEY, AMBULATED SELF TO BED. IN NO ACUTE DISTRESS, RESPS E/U. VS AND WT OBTAINED. PT ORIENTED TO ROOM/UNIT. DENIES NEEDS AT THIS TIME. CALL LIGHT, POSSESSIONS IN REACH, CONTINUE TO MONITOR.
[2020-09-02 06:08] LABS: Anion Gap 5 mmol/L (6-16); Blood Urea Nitrogen 12 mg/dL (8-24); Bun/Creatinine Ratio 13.4 (12.0-20.0); CO2, Blood 30 mmol/L (21-32); Calcium, Blood 8.3 mg/dL (8.5-10.1); Chloride, Blood 102 mmol/L (98-108); Glomerular Filtration Rate >60 (60-); Glucose, Blood 113 mg/dL (70-99); Potassium, Blood 4.1 mmol/L (3.5-5.5); Sodium, Blood 137 mmol/L (136-145)
--- NOTE | 2020-09-02 07:20 | NUR ---
SYSTEMS QA ANALYST SUMMARY PT ASLEEP, IN NO ACUTE DISTRESS. HAS HAD AN UNEVENTFUL NIGHT SINCE HIS ARRIVAL. VS REVIEWED, WNL. A&OX4, PLEASANT AND COOPERATIVE. NO CARDIAC EVENTS REPORTED. PT DENIES NEEDS. CALL LIGHT, POSSESSIONS IN REACH. REPORT GIVEN TO WENDY NATHAN.
--- NOTE | 2020-09-02 17:41 | NUR ---
SHIFT SUMMARY- PT HAS HAD NO ACUTE CHANGE T/O THE DAY. C/O HEADACHE ONCE MEDICATED WITH TYLENOL, PT STATED PAIN WELL MANAGED. PT WALKED INDEPENDENTLY IN THE HALLS TODAY FOR A BIT. DR STARTED PO BUMEX TO HELP TO REDUCE THE ANKLE SWELLING (+3 ON ASSESSMENT THIS MORNING). PT DENIES N/T. PT ON ROOM AIR LUNG SOUNDS COARSE. PLAN IS FOR POSSIBLE THORACENTESIS TOMORROW, PT IS AWARE. PT HAS AN OSTOMY WHICH HE MANAGES HIMSELF, NO OUTPUT TODAY. WILL CALL DR CAMPO FOR BOWEL CARE ORDERS.
--- NOTE | 2020-09-02 17:53 | NUR ---
CALLED DR CAMPO AND RECIEVED ORDER FOR BOWEL CARE MEDS. PT STATED HE TAKES A PROBIOTIC EVERY DAY TWICE A DAY AT HOME, NO OTHER BOWEL CARE MEDS. PT STATED HE HAS NEVER BEEN "BLOCKED UP LIKE THIS." PLACED ORDERS IN ORDER MANAGEMENT WILL MEDICATE WHEN AVAILABLE FROM PHARMACY.
--- NOTE | 2020-09-02 19:00 | NUR ---
ASSUMED CARE RECEIVED REPORT FROM WENDY NATHAN. PT UP TO BATHROOM, PCU SHIELD RUNNER REPORTING HR OF 135, PT ASYMPTOMATIC, BRUSHING TEETH IN BATHROOM. ASSISTED BACK TO BED. VS OBTAINED, WNL. HR DECREASED TO 119 PER HYDROTEL OPERATOR. NO FURTHER NEEDS ASSESSED AT THIS TIME. WCTM HR.
--- NOTE | 2020-09-02 22:00 | NUR ---
ALEXANDRU PAULA NOTIFIED OF PT'S HR SUSTAINING SINUS TACHYCARDIA AT 119. NO NEW ORDERS RECEIVED AT THIS TIME, CONTINUE TO MONITOR PT HR.
[2020-09-03 04:41] LABS: BASOPHILS ABSOLUTE AUTO 0.02 K/mm3 (0.00-0.23); BASOPHILS PERCENT AUTO 0 % (0-2); EOSINOPHILS ABSOLUTE AUTO 0.02 K/mm3 (0.00-0.68); EOSINOPHILS PERCENT AUTO 0 % (0-6); Hematocrit 29.3 % (37.0-53.0); Hemoglobin 9.4 g/dL (13.5-17.5); IMMATURE GRAN ABSOLUTE AUTO 0.05 K/mm3 (0.00-0.10); IMMATURE GRAN PERCENT AUTO 1 % (0-1); LYMPHOCYTES ABSOLUTE AUTO 0.82 K/mm3 (0.84-5.20); LYMPHOCYTES PERCENT AUTO 10 % (21-46); MONOCYTES ABSOLUTE AUTO 0.56 K/mm3 (0.16-1.47); MONOCYTES PERCENT AUTO 7 % (4-13); Mean Corpuscular HGB 28.1 pg (26.0-34.0); Mean Corpuscular HGB Conc 32.1 g/dL (31.5-36.5); Mean Corpuscular Volume 88 fL (80-100); Mean Platelet Volume 9.2 fL (9.1-12.4); NEUTROPHILS ABSOLUTE AUTO 6.72 K/mm3 (1.96-9.15); NEUTROPHILS PERCENT AUTO 82 % (41-73); Platelet Count 321 K/mm3 (150-400); RDW Coefficient Variation 13.9 % (11.7-14.2); RDW Standard Deviation 44.8 fL (35.1-46.3); Red Blood Cell Count 3.35 M/mm3 (4.30-5.90); White Blood Cell Count 8.19 K/mm3 (4.00-11.30)
[2020-09-03 04:58] LABS: International Normalized Ratio 1.17; Prothrombin Time Results 12.4 Sec (9.7-11.5)
[2020-09-03 05:00] LABS: Anion Gap 7 mmol/L (6-16); Blood Urea Nitrogen 12 mg/dL (8-24); Bun/Creatinine Ratio 11.4 (12.0-20.0); CO2, Blood 29 mmol/L (21-32); Calcium, Blood 8.7 mg/dL (8.5-10.1); Chloride, Blood 104 mmol/L (98-108); Creatinine, Blood 1.05 mg/dL (0.60-1.20); Glomerular Filtration Rate >60 (60-); Glucose, Blood 106 mg/dL (70-99); Potassium, Blood 3.7 mmol/L (3.5-5.5); Sodium, Blood 140 mmol/L (136-145)
--- NOTE | 2020-09-03 05:38 | NUR ---
PLASTER MACHINE OPERATOR SUMMARY PT RESTING COMFORTABLY, IN NO ACUTE DISTRESS. VS REVIEWED,WNL. PT HAS BEEN SLEEPING THROUGH MUCH OF THE NIGHT. HR IMPROVED, CURRENTLY RUNNING SINUS TACH AT 102 PER GAMEPLAY PROGRAMMER. PT DENIES CP/PRESSURE/SOB. MEDICATED X1 FOR C/O KWAN. PT HAS HAD NO OTHER ACUTE CHANGES IN CONDITION T/O NIGHT. DENIES FURTHER NEEDS AT THIS TIME. AWAITING THORACENTESIS TODAY. WILL REPORT OFF TO DAY RN.
[2020-09-03 11:10] LABS: Automated BF RBC Count 1.004 M/mm3 (0-0); RBC Count, Body Fluid 1004000 /mm3 (0-0)
[2020-09-03 11:15] LABS: Automated BF WBC Count >200.000 K/mm3 (0-999)
[2020-09-03 11:16] LABS: Body Fluid WBC Count > 200000 /mm3 (0-999)
[2020-09-03 12:37] LABS: Total Cell Count, Body Fluid 100
[2020-09-03 12:39] LABS: Appearance, Body Fluid Turbid (Clear)
--- NOTE | 2020-09-03 14:36 | NUR ---
SHIFT SUMMARY PT IS A&O, PLEASANT AND CO-OP. INDEPENDENT IN AND TO [facility]. IMAGING CALLED TO REPORT PT WOULD BE GOING DOWN FOR US GUIDED THORACENTISIS AT 10:00. PT ABLE TO EAT BREAKFAST AND TAKE AM MEDS. LOVENOX HELD. PT WITH LLQ OSTOMY WITH SM AMT OF FORMED STOOL OUTPUT. PT RETURNED TO AFTER PROCEDURE AND REQUESTED SHOWER. TIRE MOLDER'S ASSISTED WITH SET UP AND LINEN CHANGES. PT REPORTED THICK WHITE LIQUID OBTAINED DURING THORA; MUCH LESS AMOUNT THAN PREVIOUS FLUID REMOVAL. FLUID SENT TO LAB TO BE CULTURED. PT WANTING TO BE D/C'D TODAY, BUT UNABLE TO DO SO UNTIL CX ID'D AND CORRECT ABX DETERMINED FOR D/C. PT VERBALIZED UNDERSTANDING. PT UP INDEPENDENTLY WALKING IN HALLS TO PASS THE TIME. NO C/O PAIN OR SOB. CALL LT IN REACH.
--- NOTE | 2020-09-03 19:25 | NUR ---
Awake. Laying in bed. No c/o voiced. Call light in reach
[2020-09-04 04:53] LABS: Hematocrit 29.4 % (37.0-53.0); Hemoglobin 9.4 g/dL (13.5-17.5); Mean Corpuscular Volume 88 fL (80-100); Mean Platelet Volume 9.1 fL (9.1-12.4); Platelet Count 361 K/mm3 (150-400); RDW Coefficient Variation 14.2 % (11.7-14.2); RDW Standard Deviation 45.5 fL (35.1-46.3); Red Blood Cell Count 3.36 M/mm3 (4.30-5.90); White Blood Cell Count 8.07 K/mm3 (4.00-11.30)
[2020-09-04 05:10] LABS: Anion Gap 6 mmol/L (6-16); Blood Urea Nitrogen 14 mg/dL (8-24); Bun/Creatinine Ratio 14.7 (12.0-20.0); CO2, Blood 28 mmol/L (21-32); Calcium, Blood 8.6 mg/dL (8.5-10.1); Chloride, Blood 105 mmol/L (98-108); Creatinine, Blood 0.95 mg/dL (0.60-1.20); Glomerular Filtration Rate >60 (60-); Glucose, Blood 99 mg/dL (70-99); Potassium, Blood 3.8 mmol/L (3.5-5.5); Sodium, Blood 139 mmol/L (136-145)
--- NOTE | 2020-09-04 05:19 | NUR ---
SHIFT SUMMARY HAS BEEN RESTING QUIETLY WITH A FEW INTERRUPTIONS, SUCH MEDICATIONS, BATHROOM BREAKS AND LABS. IV ANTIBOITICS INFUSED AND PAIN MED GIVEN - SEE MAR FOR DETAILS. CALL LIGHT IN REACH. AFFECT CHEERFUL AT THIS TIME.
--- NOTE | 2020-09-04 18:23 | NUR ---
SHIFT SUMMARY PT AOX4; INDEPENDENT IN THE ROOM. PT HAS COLOSTOMY AND MANAGE IT ON HIS OWN. PT IS RECEIVING ABX; DENIES ANY PAIN OR SOB. SINUS TACH ON TELE. BED IS IN THE LOWEST POSITION AND CALL LIGHT WITHIN REACH
--- NOTE | 2020-09-04 19:53 | NUR ---
AWAKE EARLIER, RECEIVING RESP TREATMENT. CALL LIGHT IN REACH. NO C/O VOICED.
--- NOTE | 2020-09-05 06:52 | NUR ---
SHIFT SUMMARY HAS BEEN RESTING QUIETLY WITH FEW INTERRUPTIONS. IV ANTIBIOTICS AND TYLENOL ADMINISTERED PER MD ORDER - SEE MAR FOR DETAILS. TYLENOL WAS EFFECTIVE, WAS GIVEN FOR HEADACHE AND ALLEVIATED SAID PAIN. CALL LIGHT IN REACH
[2020-09-05] MEDS ORDERED: FURO20 PO (10:20)
[2020-09-05] MEDS ORDERED: AMOX875 PO (10:21)
--- NOTE | 2020-09-05 12:19 | NUR ---
PT DISCHARGE TO HOME. IV DC'D. PT RECEIVED A DOSE OF ROCEPHIN PRIOR DISCHARGE. PT ALSO RECEIVED AM MEDS. PT GIVEN EDUCATION PACKET AND MEDICATION LIST. FAXED THE NEW MED[facility] MED REC TO [facility]. PT STATED HE WILL COME AND GET IT TOMORROW. PT DURING EDUCATION. PT RECEIVED A HARD SCRIPT FROM FOR SLY. VALUABLES RETURNED TO PT.
[2020-10-01] MEDS ORDERED: AMOCLA875 PO (11:22)
[2020-10-01] MEDS ORDERED: BENZ100A PO (11:22)
[2020-12-16] MEDS ORDERED: MULTIPLE VITAM1 EACH PO (10:56)
[2020-12-16] MEDS ORDERED: IBUP200 PO (10:56)
[2020-12-16] MEDS ORDERED: VITAMIN D325 MC3 PO (10:56)
[2020-12-16] MEDS ORDERED: VALACYCLOVIR1000 M1 PO (10:57)
[2020-12-16] MEDS ORDERED: OMEP20ER PO (10:57)
[2020-12-16] MEDS ORDERED: Ranitidine HCl150 M1 PO (10:57)
[2020-12-16] MEDS ORDERED: PROBIOTIC1 EA13 PO (10:57)
== END 2020-09-05 11:57 | disposition home or self-care (01) | DRG 871 ==
LOC: ER 23:08 → MEDS 09-02 03:49
PROVIDERS: Emergency Medicine; Internal Medicine; ADMIT Internal Medicine
PROC: 0W9B3ZZ Drainage of Left Pleural Cavity, Percutaneous Approach (ICD-10-PCS; principal; 2020-09-03)
DX: A41.9 Sepsis, unspecified organism (principal); J96.01 Acute respiratory failure with hypoxia; J18.9 Pneumonia, unspecified organism; C83.10 Mantle cell lymphoma, unspecified site; J90 Pleural effusion, not elsewhere classified; I10 Essential (primary) hypertension; Z87.891 Personal history of nicotine dependence; Z93.3 Colostomy status; Z20.822 Contact with and (suspected) exposure to COVID-19; K64.9 Unspecified hemorrhoids
CPT/HCPCS: 32555; 36415; 71045; 71260; 80048; 80053; 82272; 83605; 83880; 84145; 84484; 85025; 85027; 85379; 85610; 85730; 87040; 87070; 87075; 87184; 87205; 89051; 93005; 93010; 94640; 94667; 94760; 96365; 99285-25; A9270; C9113; J0692; J1650; J1956; J3370; J7050; J7120; Q9967

== ENCOUNTER 2020-12-23 09:35 | Day surgery (SDC) | payer OTHER ==
[~2020-12-23] VITALS: Ht 180.3 cm; Wt 77.1 kg
[~2020-12-23 09:35] MED LIST changes: +AMOCLA875 PO; +AMOX875 PO; +BENZ100A PO; +FURO20 PO; +IBUP200 PO; +MULTIPLE VITAM1 EACH PO; +PROBIOTIC1 EA13 PO; +Ranitidine HCl150 M1 PO; +VALACYCLOVIR1000 M1 PO; +VITAMIN D325 MC3 PO
--- NOTE | 2020-12-23 11:30 | NUR ---
12/23/20 1130 Polly Bonilla S LUNGS COARSE WITH WHEEZES CLEARING WITH COUGH. PT. RECEIVING NEBULIZER RX NOW. PT. DENIES SOB. PT. DENIES PAIN.
== END 2020-12-23 13:00 | disposition home or self-care (01) ==
LOC: ORSCSDS 09:35
PROVIDERS: Surgery
PROC: 0DBM8ZX Excision of Descending Colon, Via Natural or Artificial Opening Endoscopic, Diagnostic (ICD-10-PCS; principal; 2020-12-23 11:00)
PROC: 0DJD8ZZ Inspection of Lower Intestinal Tract, Via Natural or Artificial Opening Endoscopic (ICD-10-PCS; principal; 2020-12-23 11:00)
PROC: 0DBK8ZX Excision of Ascending Colon, Via Natural or Artificial Opening Endoscopic, Diagnostic (ICD-10-PCS; principal; 2020-12-23 11:00)
DX: Z12.11 Encounter for screening for malignant neoplasm of colon (principal); D12.2 Benign neoplasm of ascending colon; D12.4 Benign neoplasm of descending colon; K57.30 Diverticulosis of large intestine without perforation or abscess without bleeding; Z87.19 Personal history of other diseases of the digestive system; Z87.891 Personal history of nicotine dependence; K21.9 Gastro-esophageal reflux disease without esophagitis; Z79.899 Other long term (current) drug therapy; I10 Essential (primary) hypertension
CPT/HCPCS: 88305; J2704; J7120

== ENCOUNTER 2021-04-27 05:49 | Inpatient (IN) | payer OTHER ==
[~2021-04-27] VITALS: Ht 177.8 cm; Wt 76.5 kg
[~2021-04-27 05:49] MED LIST changes: +Hytrin1 MG PO
--- NOTE | 2021-04-27 06:24 | NUR ---
Ambulatory in Day Surgery. History, Chart, Medications and Allergies reviewed before start of procedure. Lungs clear T/O to Auscultation. NPO EXCEPT ENSURE THAT WAAS ORDERERED AT 0430 CLEAR ENSURE.
--- NOTE | 2021-04-27 07:54 | NUR ---
04/27/21 0754 Diogenes Flores PATIENT INTO OR ROOM 1 WITH NURSES See Anesthesia record. O2 VIA N/C INTACT THROUGHOUT SEDATION/PROCEDURE. MONITOR INTACT WITH CONTINUOUS PULSE OXIMETRY AND INTERMITTENT BP.
[2021-04-27 09:13] LABS: Automated BF RBC Count 0.002 M/mm3 (0-0); Automated BF WBC Count 2.147 K/mm3 (0-999); Body Fluid WBC Count 2147 /mm3 (0-999)
[2021-04-27 09:37] LABS: Appearance, Body Fluid Hazy (Clear); Color, Body Fluid Yellow (None-Yellow); Total Cell Count, Body Fluid 100
--- NOTE | 2021-04-27 09:51 | NUR ---
STOMA CLEAND AND intact with no visible swelling, erythema or bruising noted. Discharge instructions reviewed with patient. Patient verbalizes understanding. Copy given to patient to take home.
--- NOTE | 2021-04-27 10:07 | NUR ---
Discharged via wheelchair to private car for ride home.
[2021-04-27 13:23] LABS: Triglycerides, Body Fluid 336 mg/dL
== END 2021-04-28 10:45 | disposition home or self-care (01) | DRG 357 ==
LOC: SURS 05:49 → PRE IP 07:30 → BC 07:30 → SURS 14:20
PROVIDERS: ADMIT Surgery
PROC: 0W9G4ZX Drainage of Peritoneal Cavity, Percutaneous Endoscopic Approach, Diagnostic (ICD-10-PCS; principal; 2021-04-27 07:30)
PROC: 0DBM8ZZ Excision of Descending Colon, Via Natural or Artificial Opening Endoscopic (ICD-10-PCS; 2021-04-27 07:30)
DX: Z43.3 Encounter for attention to colostomy (principal); C91.10 Chronic lymphocytic leukemia of B-cell type not having achieved remission; R18.8 Other ascites; E03.9 Hypothyroidism, unspecified; K21.9 Gastro-esophageal reflux disease without esophagitis; N40.0 Benign prostatic hyperplasia without lower urinary tract symptoms; J32.9 Chronic sinusitis, unspecified; F32.A Depression, unspecified; E78.5 Hyperlipidemia, unspecified; I10 Essential (primary) hypertension; D12.4 Benign neoplasm of descending colon; Z90.49 Acquired absence of other specified parts of digestive tract; Z87.891 Personal history of nicotine dependence; Z98.890 Other specified postprocedural states; Z90.89 Acquired absence of other organs; Z98.52 Vasectomy status
CPT/HCPCS: 84478; 87070; 87075; 87205; 88305; 89051; A9270; J0694; J1100; J1644; J2250; J2370; J2405; J2704; J3010; J7120

== ENCOUNTER 2021-08-16 05:44 | Inpatient (IN) | payer OTHER ==
[~2021-08-16] VITALS: Ht 180.3 cm; Wt 79.1 kg
[~2021-08-16 05:44] MED LIST changes: +MULVITA PO; +VITAMIN D310 MC4 PO; +ZINC15 PO
--- NOTE | 2021-08-16 06:34 | NUR ---
PT ADMITTED TO [facility]. AGREES WITH PLANNED SURGERY. LUNG SOUNDS CLEAR.
--- NOTE | 2021-08-16 07:04 | NUR ---
REORT GIVEN TO LILLY ROA RN.
--- NOTE | 2021-08-16 17:47 | NUR ---
PATIENT ARRIVED TO THE FLOOR FROM PACU AT ABOUT 1410. PATIENT AWAKE AND ALERT ABLE TO MAKE NEEDS AND WANTS KNOWN. RUTHY DRESSING TO LEFT ABD WITH SOME DRAINAGE NOTED, IT IS MARKED. NO NEW DRAINAGE NOTED. ILIOSTOMY APPLIANCE ON RIGHT ABD INTACT, NO OUTPUT NOTED AT THIS TIME. PATIENT PLACED ON 2L O2 PER NC DUE TO O2 SATS STAYING IN THE 85-89 RANGE ON ROOM AIR. MAINTAINING O2 SATS AT 93-96 ON THE 2L. NO COMPLAINTS OF NAUSEA THIS TIME, ONLY TAKING ICE CHIPS FOR NOW, WE CAN ADVANCE TO CLEAR LIQUIDS. BOWEL SOUNDS HYPOACTIVE. DRAINAGE NOTED FROM RECTUM WHEN CHANGING LINENS UNDER HIM, IT IS SEROSANG IN COLOR. COMPLAINS OF ABD PAIN BUT DENIES NEED FOR PAIN MED AT THIS TIME. IS GIVEN TO PATIENT AND HE WAS TAUGHT HOW TO USE IT, HE VERBALIZED UNDERSTANDING. NO SIGNS OR SYMPTOMS ACUTE DISTRESS NOTED AT THIS TIME. CALL LIGHT AND ICE IN EASY REACH. DR JIMENEZ CAME TO SEE PATIENT. WILL MONITOR.
[2021-08-17 04:18] LABS: Hematocrit 42.5 % (37.0-53.0); Hemoglobin 13.8 g/dL (13.5-17.5); Mean Corpuscular HGB Conc 32.5 g/dL (31.5-36.5); Mean Corpuscular Volume 96 fL (80-100); Mean Platelet Volume 9.7 fL (9.1-12.4); Platelet Count 192 K/mm3 (150-400); RDW Coefficient Variation 12.3 % (11.7-14.2); RDW Standard Deviation 43.9 fL (35.1-46.3); Red Blood Cell Count 4.45 M/mm3 (4.30-5.90); White Blood Cell Count 9.33 K/mm3 (4.00-11.30)
[2021-08-17 04:59] LABS: Anion Gap 6 mmol/L (6-16); Blood Urea Nitrogen 18 mg/dL (8-24); Bun/Creatinine Ratio 18.8 (12.0-20.0); CO2, Blood 26 mmol/L (21-32); Calcium, Blood 7.7 mg/dL (8.5-10.1); Chloride, Blood 108 mmol/L (98-108); Creatinine, Blood 0.96 mg/dL (0.60-1.20); Glomerular Filtration Rate >60 (60-); Glucose, Blood 101 mg/dL (70-99); Potassium, Blood 4.4 mmol/L (3.5-5.5); Sodium, Blood 140 mmol/L (136-145)
--- NOTE | 2021-08-17 06:05 | NUR ---
SLEPT WELL THROUGH NIGHT. MEDICATED FOR PAIN MANAGEMENT,EFFECTIVE RELIEF. ILEOSTOMY PATENT, DRAINED 150ML OF DARK BROWN LIQUID. BOWEL SOUNDS PRESENT. RUTHY DRESSING INTACT TO LEFT QUAD, OLD RED DRAINAGE NOTED. RESTING PEACEFULLY IN BED. SAFETY MAINTAINED, CALL DUARTE IN REACH.
--- NOTE | 2021-08-17 06:40 | NUR ---
DISCONTINUED BLANCO CATHETER AT 0630, TOLERATED WELL. STOMA BEEFY RED,ILEOSTOMY BAG INTACT.
--- NOTE | 2021-08-17 15:14 | NUR ---
SHIFT SUMMARY: POD 1 ILEOSTOMY PATIENT IS ALERT AND ORIENTED X4. VS ARE WNL AND IS ON RA. PAIN IS MANAGED WITH PO NORCO AND TYLENOL. RUTHY IS THE SAME WITH A SCANT AMOUNT OF OLD BLOOD BUT IS INTACT. HIS ILEOSOMY HAS BEEN HAVING DARK BROWN OUTPUT THROUGHOUT THE SHIFT. HE HAS BEEN TOLERATING PO INTAKE AND IS VOIDING. HE IS A SBA WITH FWW AND GAIT BELT. PATIENT REPORTED A SMALL AMOUNT OF NAUSEA BUT STATES "ITS BECAUSE I DIDN'T GET MY PRILOSEC THIS MORNING". PATIENT WAS GIVEN ZOFRAN AND PRILOSEC AND NAUSEA HAS SINCE IMPROVED. CALLS APPROPRIATELY. CALL LIGHT WITHIN REACH. PATIENT SLEEPING INTERMITTENTLY IN CHAIR. THE PLAN IS TO CONTINUE PAIN MANAGEMENT AND MONITOR ILEOSTOMY OUTPUT/PROVIDE ILEOSTOMY TRAINING. IN 6 WEEKS THE PATIENT WILL HOPEFULLY HAVE A REVERSAL DONE.
--- NOTE | 2021-08-18 07:50 | NUR ---
SUMMARY ROJELIO [place] IS NOW GREEN -BROWN THIS AM. MED WITH PHENREGAN AND DILUADID FOR INCREASED PAIN AND NAUSEA/HEARTBURN-. PT VERB IMPROVEMENT AFTER SLEEPING POST DOSE.I ASKED DAY RN TO INQUIRE ABOUT POSSIBILITY OF ORDER FOR PROTONIX IV PT UNABLE TO TAKE HIS USUAL PROILOSEC.
--- NOTE | 2021-08-18 07:52 | NUR ---
SUMMARY PT WITH APPEARANCE SLIGHT DECREASE IN SWELLING LLE. HOPES FOR DISCHARGE TODAY. HEP GTT REAMINS AT SAME RATE.
--- NOTE | 2021-08-18 09:47 | NUR ---
pt laying in bed slowly picking at breakfast, a/ox3, pleasant and cooperative with care, follows commands well, denies pain at this time, states he's feeling much better than yesterday, lungs are course with some exp wheezing t/o, currently on 1/2 liter o2 via n/c, sats mid 90's, no cough noted at this time, hrr, no edema noted, ppp+2, cap refill<3sec, vs stable, afebrile, iv site is clear and patent, infusing lr as ordered, btx2 hyperactive, abd round soft tender, surg incision to right side horizontal, with wound vac in place, ostomy on right, draining semi liquid almost black stool, stoma is pink, maew, general weakness, millie, call light in reach.
--- NOTE | 2021-08-18 10:32 | NUR ---
Pt. is awakw and in bed. Pt. welcomes my visit. Pt. is unsettled about recent health concerns, and a bad day with nausea post surgery. Provide a calming presence through theraputic listening. Establish rapport. Pt. displays evidence of increased courage as he anticipates a discharge in the days ahead. Establish rapport, and facilitate a life review. Radha is big part of pts. life. Explored issues of radha and belief. Prayed with Pt. Pt. displayed evidence of Encouragement, and verbalized gratitude for his spiritual care visit.
--- NOTE | 2021-08-18 12:55 | NUR ---
Dr. De Luna in to see pt, she ok to give lovenox, this was given, 0.5mg dilaudid given for pain, pt not tolerating food just yet. only a few bites. pt more comfortable after pain meds administered. call light in reach.
--- NOTE | 2021-08-18 18:15 | NUR ---
Pt has taken several walks around the unit, complains of indigestion. poor appetite, no acute changes this shift, call light in reach.
[2021-08-19 04:46] LABS: Anion Gap 3 mmol/L (6-16); Blood Urea Nitrogen 20 mg/dL (8-24); Bun/Creatinine Ratio 20.3 (12.0-20.0); CO2, Blood 30 mmol/L (21-32); Calcium, Blood 8.3 mg/dL (8.5-10.1); Chloride, Blood 107 mmol/L (98-108); Creatinine, Blood 0.99 mg/dL (0.60-1.20); Glomerular Filtration Rate >60 (60-); Glucose, Blood 95 mg/dL (70-99); Magnesium, Blood 1.9 mg/dL (1.6-2.4); Potassium, Blood 5.1 mmol/L (3.5-5.5); Sodium, Blood 140 mmol/L (136-145)
--- NOTE | 2021-08-19 06:53 | NUR ---
SUMMARY PT WITH PATENT OSTOMY BROWN-GREEN,APPLIANCE REPLAED TONIGHT.REPORTS PAIN AND NAUSEA IMPROVED.
--- NOTE | 2021-08-19 11:37 | NUR ---
Pt. is sitting up in a chair and is alert. Pt. welcomes my visit. Pt. is pleasant and we quickly re-establish rapport. Pt. is generally at peace with his diagnosis and prognosis, but Pt. is unsettled by the situation of the world, news of wars in [place]. Listen empathetically. Pt. displays evidence of concern, but ultimately is trusting if God. [place] with Pt. Pt. verbalizes gratitude for my visit, and verbalizes that he prays for both the chaplains at [facility].
--- NOTE | 2021-08-19 17:49 | NUR ---
SHIFT SUMMARY PATIENT ALERT AND ORIENTED AND INDEPENDENT IN THE ROOM THROUGHOUT SHIFT. LEFT SIDE ABD INCISION WITH RUTHY AND SMALL AMOUNT OF DRAINAGE. RIGHT ILEOSTOMY WNL WITH SMALL AMOUNT LIQUID OUTPUT. PATIENT MANAGES OSTOMY. TOLRATING SMALL AMOUNTS OF REGULAR DIET. MEDICATED FOR PAIN PRN.
[2021-08-20 04:18] LABS: BASOPHILS ABSOLUTE AUTO 0.04 K/mm3 (0.00-0.23); BASOPHILS PERCENT AUTO 1 % (0-2); EOSINOPHILS ABSOLUTE AUTO 0.22 K/mm3 (0.00-0.68); EOSINOPHILS PERCENT AUTO 4 % (0-6); Hemoglobin 13.4 g/dL (13.5-17.5); IMMATURE GRAN ABSOLUTE AUTO 0.02 K/mm3 (0.00-0.10); IMMATURE GRAN PERCENT AUTO 0 % (0-1); LYMPHOCYTES ABSOLUTE AUTO 0.86 K/mm3 (0.84-5.20); LYMPHOCYTES PERCENT AUTO 15 % (21-46); MONOCYTES ABSOLUTE AUTO 0.52 K/mm3 (0.16-1.47); MONOCYTES PERCENT AUTO 9 % (4-13); Mean Corpuscular HGB 31.3 pg (26.0-34.0); Mean Corpuscular HGB Conc 32.7 g/dL (31.5-36.5); Mean Corpuscular Volume 96 fL (80-100); Mean Platelet Volume 9.3 fL (9.1-12.4); NEUTROPHILS PERCENT AUTO 71 % (41-73); Platelet Count 189 K/mm3 (150-400); RDW Coefficient Variation 12.1 % (11.7-14.2); Red Blood Cell Count 4.28 M/mm3 (4.30-5.90); White Blood Cell Count 5.76 K/mm3 (4.00-11.30)
[2021-08-20 04:35] LABS: Anion Gap 4 mmol/L (6-16); Blood Urea Nitrogen 21 mg/dL (8-24); Bun/Creatinine Ratio 22.1 (12.0-20.0); CO2, Blood 28 mmol/L (21-32); Calcium, Blood 8.4 mg/dL (8.5-10.1); Chloride, Blood 107 mmol/L (98-108); Creatinine, Blood 0.95 mg/dL (0.60-1.20); Glomerular Filtration Rate >60 (60-); Glucose, Blood 98 mg/dL (70-99); Potassium, Blood 4.6 mmol/L (3.5-5.5); Sodium, Blood 139 mmol/L (136-145)
--- NOTE | 2021-08-20 06:15 | NUR ---
SHIFT SUMMARY: PT IN BED AAOX3. VS WNL WITH NO SIGNS OF DISTRESS NOTED. COARSE LUNG SOUNDS ON LEFT WITH PRODUCTIVE COUGH. IV IN LEFT ARM PATENT. ILEOSTOMY C/D/I. SMALL AMOUNT OF DARK BROWN OUTPUT WITH SOME FORMED STOOL. FLATUS PRESENT. VOID WELL DANIEL COLOR URINE. TOLERATED MEDICATIONS ORDERED. MONITORING AND MAINTAINING ALL PRECAUTIONS.
--- NOTE | 2021-08-20 17:50 | NUR ---
PT. UP AND AMBULATE IN [place] MULTIPLE TIMES TODAY, TOLERATE WELL. DID TAKE ONE NORCO THIS A.M. AND VERBALIZE RELIEF OF ABDOMINAL DISCOMFORT RLQ. OFFER ONE TODAY AND DECLINED, AT THIS TIME STATES "ITS UP TO A 12/02, I SHOULD HAVE TAKEN ONE EARLIER THAN THIS". ONE NORCO GIVEN AND PT. EATING DINNER, STATES "I DONT HAVE MUCH OF AN APPETITE". ENCOURAGED TO GO SLOW AND DO THE BEST HE CAN. PATIENT CARING FOR HIS ILEOSTOMY, POUCH INTACT AND PT. LETTING FLATUS OUT NEEDED. SCANT AMOUNT LOOSE STOOL, STATES HE IS VOIDING.
--- NOTE | 2021-08-21 04:31 | NUR ---
SHIFT SUMMARY: PT. AOX4, ABLE TO MAKE NEEDS KNOWN, USES CALL LIGHT. ILEOSTOMY C/D/I, DRAINING SMALL AMOUNT OF DARK BROWN SOFT STOOLS WHICH PT. INDEPENDENTLY TAKES CARE OF. COMPLAINTS OF ABDOMINAL PAIN MEDICATED, SEE EMAR. PT. SLEEPING WELL DURING THE SHIFT. SMALL FREQUENT URINATION OF CLEAR DANIEL URINE VIA THE URINAL. NO ACUTE CHANGES NOTED. WILL CONTINUE TO MONITOR.
--- NOTE | 2021-08-21 14:29 | NUR ---
PT. UP AND AMBULATE IN [place]OREN[place]. MEDICATED WITH ONE NORCO AFTER LUNCH FOR A 5/10 PAIN. ATE 25% LUNCH, STATES HE IS HURTING A LITTLE AFTER EATING AND FEELS BLOATED. 200CC BROWN LIQUID STOOL THIS A.M. FROM OSTOMY BAG. DR. MULLINS IN TO SEE PT. PATIENT VERBALIZES RELIEF OF PAIN WITH ONE NORCO. DENIES ANY NAUSEA.
--- NOTE | 2021-08-21 16:57 | NUR ---
PT. AMBULATING IN [place]OREN[place]. NOTED ABDOMEN A LITTLE MORE BLOATED. DOES STATE THE ONE DONOVAN HELPED WITH DISCOFORT. HAD ANOTHER 200 ML OF STOOL OUT FOR A TOTAL OF 400 THUS FAR THIS SHIFT, STOOL A LITTLE THICKER, NOT WATERY.
--- NOTE | 2021-08-21 18:18 | NUR ---
pt. declined dinner, states he feels slightly nauseated. Requesting nausea medication and crackers and sauk-suiattle soda. Zofran given and pt. did verbalize relief.
--- NOTE | 2021-08-22 03:05 | NUR ---
SHIFT SUMMARY: PT. AOX4, COMPLAINTS OF MINIMAL ABDOMINAL PAIN, REFUSED PAIN MEDICINE.ILEOSTOMY OUTPUT OF DARK BROWN SOFT STOOLS WITH FLUID, DRAINED 110 ML AT 9 PM. VOIDING DANIEL COLORED URINE VIA THE URINAL & BATHROOM. PT. AMBULATES TO THE BATHROOM & INDEPENDENTLY DRAIN ILEOSTOMY BAG, REMINDED TO CALL FOR ASSISTANCE & NOT FALL, PT. VERBALIZED UNDERSTANDING BUT STILL GOES TO THE BATHROOM BY HIMSELF WITHOUT CALLING.SLEEPING WELL DURING THE SHIFT. NO S/S OF RESP./CV DISTRESS NOTED.GIVEN CRACKERS PER PT'S REQUEST FOR HIS SNACK IF HE GETS HUNGRY. WILL CONTINUE TO MONITOR.
--- NOTE | 2021-08-22 14:49 | NUR ---
PATIENT ILEIOSTOMY BAG AND FLANGE CHANGED. PATIENT DENIES NEED FOR ANY PAIN MEDICATIONS TODAY AND STATES HE FEELS LESS BLOATED THAN YESTERDAY. AT THIS TIME DENIES ANY NAUSEA. UP AND AMBULATE IN [place] MULTIPLE TIMES.
--- NOTE | 2021-08-23 02:56 | NUR ---
SHIFT SUMMARY: PT. AOX4, DENIES PAIN, STATED " I'M DOING FINE, NO PAIN MEDICINE". ILEOSTOMY OUTPUT OF DARK BROWN LIQUID STOOL, SEE OUTPUT FOR TOTAL AMOUNT FOR THE SHIFT.SLEEPING WELL.NO ACUTE CHANGES NOTED. AMBULATES TO BATHROOM TO EMPTY ILEOSTOMY BAG INDEPENDENTLY. REMINDED TO USE THE CALL LIGHT FOR ANY ASSISTANCE NEEDED & NOT FALL, PT. VERBALIZED UNDERSTANDING. WILL CONTINUE TO MONITOR.
--- NOTE | 2021-08-23 13:01 | NUR ---
PATIENT DISCHARGED TO HOME ACCOMPANIED BY HIS . IV SALINE LOCK REMOVED WITHOUT INCIDENT. VERBALIZED UNDERSTANDING OF D/C INSTRUCTIONS. WILL MAKE [facility] FOLLOW UP APPOINTMENT WITH DR. JIMENEZ TO HAVE JOYCE REMOVED NEXT WEEK. OFF UNIT VIA W/C AT 1253. NO PERSONAL BELONGINGS LEFT BEHIND IN ROOM.
== END 2021-08-23 12:53 | disposition home or self-care (01) | DRG 331 ==
LOC: SURS 05:44 → PRE IP 07:30 → SURS 10:00
PROVIDERS: ADMIT Surgery
PROC: 0DSP4ZZ Reposition Rectum, Percutaneous Endoscopic Approach (ICD-10-PCS; principal; 2021-08-17)
PROC: 0D1B4Z4 Bypass Ileum to Cutaneous, Percutaneous Endoscopic Approach (ICD-10-PCS; 2021-08-17)
DX: Z43.3 Encounter for attention to colostomy (principal); N40.0 Benign prostatic hyperplasia without lower urinary tract symptoms; H91.93 Unspecified hearing loss, bilateral; F32.A Depression, unspecified; K21.9 Gastro-esophageal reflux disease without esophagitis; I10 Essential (primary) hypertension; E78.5 Hyperlipidemia, unspecified; Z87.19 Personal history of other diseases of the digestive system; Z98.52 Vasectomy status; Z90.89 Acquired absence of other organs; Z98.890 Other specified postprocedural states; Z87.891 Personal history of nicotine dependence; Z79.899 Other long term (current) drug therapy
CPT/HCPCS: 36415; 80048; 83735; 85025; 85027; A9270; C9113; J0694; J1100; J1170; J1644; J1650; J1885; J2370; J2405; J2550; J2704; J2765; J3010; J7120

== ENCOUNTER 2021-09-26 09:55 | Day surgery (SDC) | payer OTHER ==
[~2021-09-26] VITALS: Ht 177.8 cm; Wt 72.9 kg
[~2021-09-26 09:55] MED LIST changes: +VALGANCICLOVIR450 M1 PO
--- NOTE | 2021-09-26 14:24 | NUR ---
09/26/21 1424 Diogenes Flores History, Chart, Medications and Allergies reviewed before start of procedure. Patient confirms NPO status and agrees with scheduled surgery. 3-LEAD EKG REVIEWED WITH PHYSICIAN PRIOR TO START OF PROCEDURE. MONITOR INTACT WITH CONTINUOUS PULSE OXIMETRY AND INTERMITTENT BP. PATIENT DETERMINED TO BE ASA APPROPRIATE FOR PROPOFOL SEDATION PRIOR TO START OF PROCEDURE BY
--- NOTE | 2021-09-26 15:18 | NUR ---
Discharge instructions reviewed with patient. Patient verbalizes understanding. Copy given to patient to take home. Patient States Post-Procedure ride home has been arranged. Discharged via wheelchair to private car for ride home.
== END 2021-09-26 15:14 | disposition home or self-care (01) ==
LOC: ORSCMMR 09:55 → ORD 11:15 → ORSCMMR 11:30 → ORD 11:30 → ORSCMMR 15:14
PROVIDERS: Surgery
PROC: 0DJD8ZZ Inspection of Lower Intestinal Tract, Via Natural or Artificial Opening Endoscopic (ICD-10-PCS; principal; 2021-09-26 11:30)
DX: K63.89 Other specified diseases of intestine (principal); Z93.2 Ileostomy status; E78.5 Hyperlipidemia, unspecified; I10 Essential (primary) hypertension; Z87.891 Personal history of nicotine dependence; Z79.899 Other long term (current) drug therapy
CPT/HCPCS: J2704; J7120

== ENCOUNTER 2023-07-06 09:33 | Day surgery (SDC) | payer OTHER | END 2023-07-06 22:48 | disposition home or self-care (01) | LOC: US 09:33 | DX: C83.19 Mantle cell lymphoma, extranodal and solid organ sites (principal); R18.8 Other ascites | CPT/HCPCS: 49083 ==

== ENCOUNTER 2023-08-03 08:29 | Day surgery (SDC) | payer OTHER ==
[2023-08-03 10:51] LABS: Automated BF WBC Count 0.199 K/mm3 (0-999)
[2023-08-03 11:18] LABS: Body Fluid WBC Count 199 /mm3 (0-999)
[2023-08-03 11:23] LABS: Appearance, Body Fluid Cloudy (Clear); Color, Body Fluid Yellow (None-Yellow); RBC Count, Body Fluid 21 /mm3 (0-0)
[2023-08-03 11:30] LABS: Protein, Body Fluid 3.2 g/dL
[2023-08-03 11:41] LABS: Total Cell Count, Body Fluid 100
== END 2023-08-03 23:05 | disposition home or self-care (01) ==
LOC: US 08:29
PROVIDERS: Internal Medicine Hematology & Oncology
DX: K74.60 Unspecified cirrhosis of liver (principal); C83.19 Mantle cell lymphoma, extranodal and solid organ sites; R18.8 Other ascites
CPT/HCPCS: 49083; 76700; 84157; 89051

== ENCOUNTER 2024-05-20 06:00 | Day surgery (SDC) | payer OTHER ==
[2024-05-20] VITALS (14 sets, daily range): BP systolic 112–134; BP diastolic 61–80
[~2024-05-20] VITALS: Ht 180.3 cm; Wt 79.9 kg
[~2024-05-20 06:00] MED LIST changes: +SPIR25 PO; +Vitamin D1000 UNI1 PO; +ZINC50 M3 PO
[2024-05-20] MEDS ORDERED: Lactated Ringer's 1,000 ML IV SCH (06:15)
[2024-05-20] MEDS ORDERED: CeFAZolin Sodium 2,000 MG in NS 100 ML IV SCH (06:15)
[2024-05-20] MEDS ORDERED: propofoL 20 ML IV ONE (06:54)
[2024-05-20] MEDS ORDERED: FentaNYL Citrate 50 MCG/ML 2 ML Injection ONE (06:54)
[2024-05-20] MEDS ORDERED: Dexamethasone Sod Phos 10 MG/ML 1ML VIAL ONE (06:55)
[2024-05-20] MEDS ORDERED: Ondansetron HCl 2 MG / ML 2ML Vial ONE (06:55)
[2024-05-20] MEDS ORDERED: Rocuronium Bromide 10 MG/ML 5ML Injection IV ONE (06:55)
[2024-05-20] MEDS ORDERED: Bupivacaine 0.5% HCl 5 MG/ML 30MLVIAL ONE (07:08)
[2024-05-20] MEDS ORDERED: CeFAZolin Sodium 2,000 MG VIAL ONE (07:10)
--- NOTE | 2024-05-20 07:20 | NUR ---
History, Chart, Medications and Allergies reviewed before start of procedure.LUNGS CLEAR. PRE OP TEACHING DONE. AT BEDSIDE
[2024-05-20] MEDS ORDERED: Phenylephrine HCl 100 MCG/ML-NS 10MLSYR (1MG/10ML) ONE (07:29)
[2024-05-20] MEDS ORDERED: ePHEDrine Sulfate 50 MG/ML 1ML Injection ONE (07:29)
[2024-05-20] MEDS ORDERED: Midazolam HCl 1MG / ML 2ML Vial ONE (07:31)
[2024-05-20] MEDS ORDERED: HYDROmorphone HCl/Pf 1MG SYR ONE (09:14)
[2024-05-20] MEDS ORDERED: Sugammadex Sodium 200 MG/2ML SDV (100 MG/ML) ONE (10:03)
[2024-05-20] MEDS ORDERED: HYDROcodone 5-APAP 325 TAB PO PRN (11:05)
--- NOTE | 2024-05-20 11:42 | NUR ---
SWELLING NOTED IN LRA, EXAMINED PT AT BEDSIDE. ABD BINDER IN PLACE. WILL CONTINUE TO MONITOR
--- NOTE | 2024-05-20 12:45 | NUR ---
0384 DR JIMENEZ REASSESSES PATIENT. RIGHT SIDE HEMATOMA/SWELLING IMPROVED. DR JIMENEZ STATES SHES "FINE WITH PATIENT TO GO HOME" HAS GONE [facility].
--- NOTE | 2024-05-20 13:50 | NUR ---
Discharge instructions reviewed with patient. Patient verbalizes understanding. Copy given to patient to take home. Dressings c/d/i. Hematoma assessed by Dr. De Luna, cleared to go home and to keep abd binder in place till this evening. Patient States Post-Procedure ride home has been arranged. Discharged via wheelchair to private car for ride home.
== END 2024-05-20 13:50 | disposition home or self-care (01) ==
LOC: ORSCMMR 06:00 → ORD 07:30 → ORSCMMR 07:30
PROVIDERS: Surgery
PROC: 8E0W4CZ Robotic Assisted Procedure of Trunk Region, Percutaneous Endoscopic Approach (ICD-10-PCS; principal; 2024-05-20 07:30)
PROC: 0WUF4JZ Supplement Abdominal Wall with Synthetic Substitute, Percutaneous Endoscopic Approach (ICD-10-PCS; principal; 2024-05-20 07:30)
PROC: 0F903ZX Drainage of Liver, Percutaneous Approach, Diagnostic (ICD-10-PCS; principal; 2024-05-20 07:30)
PROC: 0YU64JZ Supplement Left Inguinal Region with Synthetic Substitute, Percutaneous Endoscopic Approach (ICD-10-PCS; principal; 2024-05-20 07:30)
DX: K40.90 Unilateral inguinal hernia, without obstruction or gangrene, not specified as recurrent (principal); K43.2 Incisional hernia without obstruction or gangrene; K42.9 Umbilical hernia without obstruction or gangrene; R18.8 Other ascites; N40.0 Benign prostatic hyperplasia without lower urinary tract symptoms; I10 Essential (primary) hypertension; E78.5 Hyperlipidemia, unspecified; K74.60 Unspecified cirrhosis of liver; K21.9 Gastro-esophageal reflux disease without esophagitis; J44.9 Chronic obstructive pulmonary disease, unspecified; Z85.72 Personal history of non-Hodgkin lymphomas; Z79.899 Other long term (current) drug therapy; Z87.891 Personal history of nicotine dependence
CPT/HCPCS: A9270; C1781; J0690; J1100; J1171; J2250; J2371; J2405; J2704; J3010; J7120